=== PATIENT | male | born 1950 | race Caucasian/White ===

== ENCOUNTER 2019-09-10 07:43 | Outpatient (CLI) | payer MEDICARE, SELFPAY ==
[2019-09-10 08:19] LABS: Blood Urea Nitrogen 12 mg/dL (9-20); Calcium 9.8 mg/dL (8.4-10.2); Carbon Dioxide 30 mmol/L (22-30); Chloride 101 mmol/L (98-107); Cholesterol 114 mg/dL (0-200); Estimated Glomerular Filt Rate > 60; Glucose 124 mg/dL (75-110); HDL Direct 30 mg/dL; Potassium 4.2 mmol/L (3.4-5.0); Sodium 137 mmol/L (137-145); Triglycerides 46 mg/dL (<150)
[2019-09-10 08:21] LABS: Hemoglobin A1C 6.1 % (<5.7)
[2019-09-10 08:30] LABS: LDL Cholesterol Direct 71 mg/dL
== END 2019-09-10 07:44 | disposition home or self-care (01) ==
PROVIDERS: PCP Internal Medicine; Visit Provider Internal Medicine
DX: I10 Essential (primary) hypertension (principal); E78.2 Mixed hyperlipidemia; E11.9 Type 2 diabetes mellitus without complications
CPT/HCPCS: 36415; 80048; 80061; 83036

== ENCOUNTER 2019-09-17 11:18 | Outpatient (CLI) | payer MEDICARE, SELFPAY ==
--- NOTE | ~2019-09-17 | XR_ITS ---
XR lumbar spine 2-3V DATE: 09/17/2019 11:50 INDICATION: Low back pain TECHNIQUE: AP, lateral, coned lateral lumbosacral views COMPARISON: None FINDINGS: There is mild levoscoliosis of the lower thoracic and lumbar spine. There is diffuse idiopathic skeletal hyperostosis of the thoracic and lumbar spine. No fracture or bone destruction of the lumbar spine. The included lower thoracic and lumbar pedicles appear intact. The sacroiliac joints are intact. IMPRESSION: Scoliosis and diffuse idiopathic skeletal hyperostosis Reviewed, dictated and finalized at location A.
--- NOTE | ~2019-09-17 | XR_ITS ---
XR pelvis 1-2V DATE: 09/17/2019 11:50 INDICATION: Back pain, pelvic pain TECHNIQUE: AP view COMPARISON: None FINDINGS: No pelvic fracture or bone destruction. The pubic symphysis and sacroiliac joints are intac t. Hip joint spaces appear symmetric and relatively preserved. IMPRESSION: No significant abnormality Reviewed, dictated and finalized at location A. IMPRESSION: No significant abnormality
== END 2019-09-17 11:19 | disposition home or self-care (01) ==
PROVIDERS: PCP Internal Medicine; Visit Provider Internal Medicine
DX: M54.5 Low back pain (principal); M54.6 Pain in thoracic spine; M41.9 Scoliosis, unspecified
CPT/HCPCS: 72100; 72170

== ENCOUNTER 2019-12-17 07:25 | Outpatient (CLI) | payer MEDICARE, OTHER, SELFPAY ==
[2019-12-17 08:00] LABS: Hemoglobin A1C 5.7 % (<5.7)
[2019-12-17 08:01] LABS: Cholesterol 108 mg/dL (0-200); HDL Direct 27 mg/dL; Triglycerides 66 mg/dL (<150)
[2019-12-17 08:12] LABS: LDL Cholesterol Direct 68 mg/dL
[2019-12-17 08:32] LABS: Prostate Specific Antigen 1.1 ng/mL (< OR = 4.0)
[2019-12-17 08:44] LABS: Creatinine Urine 147.5 mg/dL
[2019-12-17 08:49] LABS: MALB Creatinine Ratio 13.4 mg/g (0-30); Microalbumin Urine Random 19.8 mg/L (0-16.7)
== END 2019-12-17 07:26 | disposition home or self-care (01) ==
LOC: ANHLAB 07:29
PROVIDERS: PCP Internal Medicine; Visit Provider Internal Medicine
DX: E11.9 Type 2 diabetes mellitus without complications (principal); E78.2 Mixed hyperlipidemia; Z12.5 Encounter for screening for malignant neoplasm of prostate
CPT/HCPCS: 36415; 80061; 82043; 83036; 84153; G0103

== ENCOUNTER 2020-05-03 08:04 | Outpatient (CLI) | payer MEDICARE, OTHER, SELFPAY ==
[2020-05-03 08:32] LABS: Basophils Absolute Auto 0.1 K/mm3 (0.0-0.1); Basophils Percent Auto 0.9 % (0.2-1.2); Eosinophils Percent Auto 0.5 % (0-4.4); Hematocrit 42.7 % (42.0-52.0); Hemoglobin 14.3 g/dL (14.0-18.0); Immature Granulocyte Absolute 0.02 K/mm3 (0.00-0.031); Immature Granulocyte Percent A 0.3 % (0-0.5); Lymphocytes Absolute Auto 2.82 K/mm3 (0.9-3.2); Lymphocytes Percent Auto 37.9 % (18.3-44.2); Mean Corpuscular HGB Conc 33.5 g/dl (32-36); Mean Corpuscular Volume 98.6 fl (80-100); Mean Platelet Volume 10.7 fl (7.4-10.4); Monocytes Absolute Auto 0.4 K/mm3 (0.1-0.6); Monocytes Percent Auto 5.4 % (2.6-8.5); Neutrophils Absolute Auto 4.1 K/mm3 (1.3-6.7); Platelet Count Result 233 k/mm3 (150-375); Red Blood Count 4.33 M/mm3 (4.6-6.20); Red Cell Distribution Width 18.2 % (11.5-14.5); White Blood Count 7.5 K/mm3 (4.5-10.0)
[2020-05-03 08:47] LABS: Alanine Aminotransferase 41 U/L (4-50); Albumin Level 3.9 g/dL (3.5-5.1); Alkaline Phosphatase 61 U/L (38-126); Anion Gap 8 mmol/L (8-16); Aspartate Amino Transferase 30 U/L (17-59); Bilirubin,Total 1.4 mg/dL (0.2-1.3); Blood Urea Nitrogen 13 mg/dL (9-20); Calcium 9.4 mg/dL (8.4-10.2); Carbon Dioxide 29 mmol/L (22-30); Chloride 102 mmol/L (98-107); Estimated Glomerular Filt Rate > 60; Glucose 130 mg/dL (75-110); Potassium 3.8 mmol/L (3.4-5.0); Sodium 139 mmol/L (137-145)
[2020-05-04 11:36] LABS: Cholesterol 120 mg/dL (0-200); HDL Direct 30 mg/dL; Triglycerides 82 mg/dL (<150)
[2020-05-04 11:47] LABS: LDL Cholesterol Direct 81 mg/dL
[2020-05-06 05:17] LABS: Homocysteine 9.8 umol/L (<11.4)
[2020-05-06 15:45] LABS: Vitamin D 1,25 (OH)2 Total 35 pg/mL (18-72); Vitamin D2 1,25 (OH)2 <8 pg/mL; Vitamin D3 1,25 (OH)2 35 pg/mL
== END 2020-05-03 08:05 | disposition home or self-care (01) ==
PROVIDERS: PCP Internal Medicine; Visit Provider Internal Medicine
DX: Z79.899 Other long term (current) drug therapy (principal); E55.9 Vitamin D deficiency, unspecified; R79.9 Abnormal finding of blood chemistry, unspecified; E11.9 Type 2 diabetes mellitus without complications; E78.2 Mixed hyperlipidemia
CPT/HCPCS: 36415; 80053; 80061; 82652; 83036; 83090; 85025

== ENCOUNTER 2020-07-05 17:03 | Outpatient (CLI) | payer MEDICARE, OTHER, SELFPAY | END 2020-07-05 17:04 | disposition home or self-care (01) | LOC: ANHCOVIDVC 17:03 | PROVIDERS: PCP Internal Medicine | DX: Z23 Encounter for immunization (principal) | CPT/HCPCS: 0001A; 91300 ==

== ENCOUNTER 2020-07-26 16:53 | Outpatient (CLI) | payer MEDICARE, OTHER, SELFPAY | END 2020-07-26 16:54 | disposition home or self-care (01) | LOC: ANHCOVIDVC 16:53 | PROVIDERS: PCP Internal Medicine | DX: Z23 Encounter for immunization (principal) | CPT/HCPCS: 0002A; 91300 ==

== ENCOUNTER 2020-09-21 07:48 | Outpatient (CLI) | payer MEDICARE, OTHER, SELFPAY ==
[2020-09-21 09:16] LABS: Hemoglobin A1C 5.9 % (<5.7)
[2020-09-21 09:21] LABS: Alanine Aminotransferase 31 U/L (4-50); Albumin Level 3.8 g/dL (3.5-5.1); Alkaline Phosphatase 55 U/L (38-126); Anion Gap 4 mmol/L (8-16); Aspartate Amino Transferase 26 U/L (17-59); Blood Urea Nitrogen 15 mg/dL (9-20); Calcium 9.7 mg/dL (8.4-10.2); Carbon Dioxide 30 mmol/L (22-30); Chloride 102 mmol/L (98-107); Cholesterol 113 mg/dL (0-200); Estimated Glomerular Filt Rate > 60; Glucose 125 mg/dL (75-110); HDL Direct 33 mg/dL; Potassium 4.3 mmol/L (3.4-5.0); Sodium 136 mmol/L (137-145); Triglycerides 45 mg/dL (<150)
[2020-09-21 09:31] LABS: LDL Cholesterol Direct 73 mg/dL
[2020-09-21 09:36] LABS: MALB Creatinine Ratio 30.9 mg/g (0-30); Microalbumin Urine Random 31.8 mg/L (0-16.7)
[2020-09-21 09:51] LABS: Prostate Specific Antigen 1.1 ng/mL (< OR = 4.0)
== END 2020-09-21 07:49 | disposition home or self-care (01) ==
PROVIDERS: PCP Internal Medicine; Visit Provider Internal Medicine
DX: Z12.5 Encounter for screening for malignant neoplasm of prostate (principal); E11.9 Type 2 diabetes mellitus without complications; I10 Essential (primary) hypertension; E78.2 Mixed hyperlipidemia; Z51.81 Encounter for therapeutic drug level monitoring; Z79.899 Other long term (current) drug therapy
CPT/HCPCS: 36415; 80053; 80061; 82043; 83036; 84153; 84443; G0103

== ENCOUNTER → 2020-10-18 13:44 | Outpatient (CLI) | payer MEDICARE, OTHER, SELFPAY ==
--- NOTE | ~2020-10-18 | CT_ITS ---
EXAMINATION: CT abdomen wo con DATE: 10/18/2020 14:03 INDICATION: Localized mass/swelling/lump of the trunk TECHNIQUE: Computed tomography (CT) of the abdomen was performed without intravenous contrast. Automa lauren exposure control and iterative reconstruction technique were employed. Exam dose: 798.69 mGy-cm total exam DLP. COMPARISON: None. FINDINGS: The lung bases are clear of infiltrate or consolidation. Heart size is within normal range. No pericardial or pleural effusion. Possible stone in the dependent aspect of the gallbladder; ultrasound would be more definitive for co nfirmation or exclusion of cholelithiasis. No pericholecystic fluid or fat stranding. No bile duct or pancreatic duct dilatation. No pancreatic mass lesion or calcification. Calcified splenic granulomas . No splenomegaly. Normal morphology of the adrenal glands. No urinary tract calculus or hydroureteronephrosis. No renal space occupying mass lesion is evident o n this limited noncontrast examination. Normal caliber of the abdominal aorta. No intraperitoneal or retroperitoneal mass lesion or adenopath y or ascites. The sigmoid colon is redundant with prominent gaseous distention of the umbilical and supraumbilical level.. There is a prominent amount of fecal material in the colon. No bowel obstruction or intraperi toneal free air is detected. Diverticulosis of the colon; no CT evidence of diverticulitis. Normal appendix. Diffuse idiopathic skeletal hyperostosis of the thoracic and lumbar spine. No suspicious osteolytic o r osteoblastic lesions are noted. Mild likely chronic anterior wedging of L2. Prominent degenerative change of the lumbar and lumbosacral apophyseal joints. No spondylolisthesis. IMPRESSION: Gaseous distention of redundant sigmoid colon, without evidence of bowel obstruction or bowel wall thickening, pneumatosis or intraperitoneal free air Normal appendix Diverticulosis of the colon; no CT evidence of diverticulitis Cannot exclude cholelithiasis; consider gallbladder ultrasound for more definitive confirmation or ex clusion of gallstones Reviewed, dictated and finalized at Location A. Reviewed, dictated and finalized at location A. IMPRESSION: Gaseous distention of redundant sigmoid colon, without evidence of bowel obstruction or bowel wall thickening, pneumatosis or intraperitoneal fidel e air Normal appendix Diverticulosis of the colon; no CT evidence of diverticulitis Cannot exclude cholelithiasis; consider gallbladder ultrasound for more definit melba confirmation or exclusion of gallstones
== END ==
PROVIDERS: PCP Internal Medicine; Visit Provider Surgery
DX: R22.2 Localized swelling, mass and lump, trunk (principal); K57.30 Diverticulosis of large intestine without perforation or abscess without bleeding
CPT/HCPCS: 74150

== ENCOUNTER 2021-01-17 08:26 | Outpatient (CLI) | payer MEDICARE, OTHER, SELFPAY ==
--- NOTE | ~2021-01-17 | NM_ITS ---
EXAMINATION: NM reji stress w perfusion DATE: 01/17/2021 10:49 INDICATION: Type 2 diabetes TECHNIQUE: Rest images were obtained following intravenous administration of 11.6 mCi Tc99m tetrofosm in (Myoview). The patient was infused intravenously with Lexiscan (Regadenoson). Then, 31.5 mCi Tc99m tetrofosmin (Myoview) was administered intravenously, and stress images were obtained. Data was preston nstructed into short axis and horizontal and vertical long axis SPECT images. Gated SPECT images were also obtained. COMPARISON: None. FINDINGS: There is no definite reversible or fixed perfusion abnormality to suggest ischemia or infar ction. There is normal left ventricular chamber size, wall motion and ejection fraction. Left ventr icular ejection fraction measures 66%. IMPRESSION: 1. Normal myocardial perfusion at rest and during stress. 2. Left ventricular ejection fraction measuring 66%. Reviewed, dictated and finalized at location A.
--- NOTE | 2021-01-17 08:39 | EST_ITS ---
Patient Info Name: Khadijah Mckeon Age: 71 years : 1950 Gender: Male Ht: 69 in Wt: 257 lbs BSA: 2.43 m2 Exam Date: 01/17/2021 9:37 AM Exam Location: [facility] Stress Patient Status: Outpatient Admit Date: 01/17/2021 Staff Ordering Physician: Patrick Ken MD Attending Provider: Patrick eKn MD Exercise Technologist: Jaleesa Milligan RDCS Exercise Physician: Alfred Truong DO Exam Type: CA stress reji w NM Study Info Indications E11.9 - TYPE 2 DIABETES MELLITUS WITHOUT COMPLICATIONS A regadenoson stress test was performed. Summary 1. 1. Negative lexiscan stress test for ischemic ST change by ECG criteria. 2. 2. Stable hemodynamics throughout the test. 3. 3. Nuclear scan to follow and will be reported separately. Please correlate with it. 4. 4. Patient informed of the above results. Protocol: Lexiscan Stress ECG Details Stage: REST Duration (min): 4 min : 5 sec HR (bpm): 80 SBP (mmHg): 122 DBP (mmHg): 64 Stage: REST Duration (min): 9 min : 46 sec HR (bpm): 82 SBP (mmHg): 122 DBP (mmHg): 64 Stage: STAGE 1 Duration (min): 0 min : 59 sec HR (bpm): 104 SBP (mmHg): 117 DBP (mmHg): 71 Stage: RECOVERY Duration (min): 1 min : 0 sec HR (bpm): 111 SBP (mmHg): 125 DBP (mmHg): 65 Stage: RECOVERY Duration (min): 2 min : 0 sec HR (bpm): 106 SBP (mmHg): 125 DBP (mmHg): 65 Stage: RECOVERY Duration (min): 3 min : 0 sec HR (bpm): 106 SBP (mmHg): 116 DBP (mmHg): 62 Stage: RECOVERY Duration (min): 4 min : 0 sec HR (bpm): 104 SBP (mmHg): 116 DBP (mmHg): 62 Stage: RECOVERY Duration (min): 4 min : 44 sec HR (bpm): 103 SBP (mmHg): 121 DBP (mmHg): 61 Rest HR: 82 bpm Peak HR: 112 bpm Rest Sys BP: 122 mmHg Peak Sys BP: 125 mmHg Max Pred HR: 147 bpm % Max Pred HR: 76 % Target HR: 125 bpm Max RPP: 14,000 bpm*mmHg Termination Reason: Completed protocol Cardiac Symptoms: Chest pressure Total Time: 1 min : 0 sec Rest Fritz BP: 64 mmHg Peak Fritz BP: 65 mmHg Total Dose: 0.4 mg Resting ECG Sinus rhythm. Stress ECG No ST changes. Arrhythmias None. Report Signatures
== END 2021-01-17 08:27 | disposition home or self-care (01) ==
LOC: ANHCARD 08:28
PROVIDERS: PCP Internal Medicine; Visit Provider Internal Medicine
DX: Z01.810 Encounter for preprocedural cardiovascular examination (principal); E11.9 Type 2 diabetes mellitus without complications; E78.2 Mixed hyperlipidemia; I10 Essential (primary) hypertension
CPT/HCPCS: 78452; 80048; 80307; 81003; 82040; 83036; 85025; 85610; 85730; 86850; 86900; 86901; 87081; 93017; A9502; J2785

== ENCOUNTER 2021-01-17 13:43 | Outpatient (CLI) | payer MEDICARE, OTHER, SELFPAY ==
[2021-01-17 14:53] LABS: Albumin Level 3.8 g/dL (3.5-5.1); Anion Gap 7 mmol/L (8-16); Blood Urea Nitrogen 13 mg/dL (9-20); Calcium 8.9 mg/dL (8.4-10.2); Carbon Dioxide 29 mmol/L (22-30); Chloride 101 mmol/L (98-107); Estimated Glomerular Filt Rate > 60; Glucose 114 mg/dL (65-110); Potassium 4.1 mmol/L (3.4-5.0); Sodium 137 mmol/L (137-145)
[2021-01-17 14:55] LABS: Hemoglobin A1C 5.5 % (<5.7)
[2021-01-17 14:57] LABS: Basophils Absolute Auto 0.1 K/mm3 (0.0-0.1); Basophils Percent Auto 1.1 % (0.2-1.2); Eosinophils Percent Auto 0.2 % (0-4.4); Hematocrit 40.6 % (42.0-52.0); Hemoglobin 13.3 g/dL (14.0-18.0); Immature Granulocyte Absolute 0.01 K/mm3 (0.00-0.031); Immature Granulocyte Percent A 0.2 % (0-0.5); Lymphocytes Absolute Auto 1.78 K/mm3 (0.9-3.2); Lymphocytes Percent Auto 27.2 % (18.3-44.2); Mean Corpuscular HGB Conc 32.8 g/dl (32-36); Mean Corpuscular Hemoglobin 32.7 pg (26-34); Mean Corpuscular Volume 99.8 fl (80-100); Mean Platelet Volume 10.2 fl (7.4-10.4); Monocytes Absolute Auto 0.4 K/mm3 (0.1-0.6); Monocytes Percent Auto 6.4 % (2.6-8.5); Neutrophils Absolute Auto 4.3 K/mm3 (1.3-6.7); Neutrophils Percent Auto 64.9 % (45.5-73.1); Platelet Count Result 203 k/mm3 (150-375); Red Blood Count 4.07 M/mm3 (4.6-6.20); Red Cell Distribution Width 19.7 % (11.5-14.5); White Blood Count 6.5 K/mm3 (4.5-10.0)
[2021-01-17 14:57] LABS: INR 0.9; Prothrombin Time 12.1 Seconds (11.1-14.7)
[2021-01-17 14:58] LABS: Partial Thromboplastin Time 23.9 SECONDS (22.3-36.8)
[2021-01-17 15:14] LABS: Add Urine Microscopic? NO; Appearance Urine Clear (Clear); Bilirubin Urine Negative (Negative); Blood Urine Negative (Negative); Color Urine Yellow (Yellow); Glucose Urine UA Negative (Negative); Ketones Urine Negative (Negative); Leukocyte Esterase Ur Negative LEU/UL (Negative); Nitrate Urine Negative (Negative); Protein Urine Negative (Negative); Specific Grav Ur 1.016 (1.001-1.035); Urobilinogen Urine Negative mg/dL (<2.0)
[2021-01-17 15:26] LABS: Urine Cotinine NEGATIVE
== END 2021-01-17 13:44 | disposition home or self-care (01) ==
LOC: ANHSURGERY 13:47
PROVIDERS: PCP Internal Medicine; Visit Provider Orthopaedic Surgery
DX: Z01.812 Encounter for preprocedural laboratory examination (principal); M17.12 Unilateral primary osteoarthritis, left knee; Z51.81 Encounter for therapeutic drug level monitoring; Z79.899 Other long term (current) drug therapy
CPT/HCPCS: 80048; 80307; 81003; 82040; 83036; 85025; 85610; 85730; 86850; 86900; 86901; 87081

== ENCOUNTER 2021-01-26 01:12 | Day surgery (SDC) | payer MEDICARE, OTHER, SELFPAY ==
[2021-01-17 13:52] VITALS: BMI 39.4
[2021-01-17 14:05] VITALS: BP 136/74; PULSE 82; RESP 20; TEMP 36.9; O2SAT 97
[2021-01-26] VITALS (15 sets, daily range): BP systolic 102–130; BP diastolic 53–90; PULSE 72–96; RESP 15–18; TEMP 36.3–36.8; O2SAT 94–100
--- NOTE | ~2021-01-26 | XR_ITS ---
EXAMINATION: XR knee LT 2V DATE: 01/26/2021 10:13 INDICATION: Left knee arthroplasty. Postop. TECHNIQUE: 2 views of left knee were obtained. COMPARISON: Left knee radiographs 12/20/2020 FINDINGS: There is a total left knee arthroplasty without patellar resurfacing in near-anatomic align ment. No fracture. There is gas in the knee joint and soft tissues, consistent with recent surgery. A nterior skin emiliano are noted. IMPRESSION: 1. Total left knee arthroplasty in near-anatomic alignment. Reviewed, dictated and finalized at location A.
[2021-01-26] MEDS: ACETAMINOPHEN 500 MG TABLET 1000 MG PO (06:44)
[2021-01-26] MEDS: LACTATED RINGERS 1,000 ML 30 ML IV CONT ×2 (06:45→10:02)
[2021-01-26] MEDS: TRANEXAMIC ACID 1,000MG/ISO100 1,000 MG/100 ML BAG 200 MG IVPB (06:46)
[2021-01-26 06:54] LABS: Glucose Point of Care 123 mg/dl (65-105)
--- NOTE | 2021-01-26 07:10 | WPDANESEPPF ---
Anes - Initial Pre Proc Eval Procedure: Operation Date: 01/26/21 07:30 Proposed Procedures p Left Total Knee Arthroplasty - Scotty Chiang MD Date/Time: 01/26/21 07:10 Surgeon: Scotty Chiang MD Pre Op Diagnosis: left knee DJD Patient Data Age: 71 Gender: M Height: 1.75 m Weight: 120.5 kg Last Vital Signs Temp 36.9 C 01/17/21 14:05 Pulse 82 01/17/21 14:05 Resp 20 01/17/21 14:05 BP 136/74 01/17/21 14:05 Pulse Ox 97 01/17/21 14:05 Allergies Allergy/AdvReac Type Severity Reaction Status Date / Time Penicillins Allergy Unknown Rash Verified 01/26/21 06:35 Home Medications Medication Instructions Recorded Confirmed Type multivitamin 1 tablet PO DAILY 09/17/19 01/26/21 History lisinopril 20 1 tablet PO DAILY #90 tablet 09/21/20 01/26/21 Rx mg-hydrochlorothiazide 25 mg tablet amlodipine 10 mg PO QAM 01/17/21 01/26/21 History atorvastatin 20 mg QAM 01/17/21 01/26/21 History omega-3 fatty acids [Fish Oil 2,000 mg PO BID 01/17/21 01/26/21 History Concentrate] metformin 500 mg tablet 500 mg PO BID #180 tablet 01/25/21 01/26/21 Rx Laboratory Tests 01/26/21 06:49 POC Capillary Glucose 123 mg/dl H mg/dl (65-105) Patient hx anesthesia problems: none Family hx anesthesia problems: none PMFSH Past Medical History Medical History Abnormal finding of blood chemistry Arthritis Back pain Benign essential hypertension BMI 38.0-38.9,adult BMI 39.0-39.9,adult Chronic back pain Colon cancer screening COPD (chronic obstructive pulmonary disease) DJD (degenerative joint disease) DM2 (diabetes mellitus, type 2) Encounter for Medicare annual wellness exam Encounter for pre-operative cardiovascular clearance Encounter for routine adult health examination with abnormal findings Encounter for routine adult health examination without abnormal findings Encounter for special screening examination for neoplasm of prostate Hearing loss High blood pressure History of urinary frequency 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 Senile cataract of right eye Umbilical hernia Ventral hernia Vitamin D deficiency Surgical History Surgical History History of knee surgery Family History Family History Father Hypertension Cerebrovascular accident Family history of cardiovascular disease Mother Hypertension Family history of cardiovascular disease Family history of arthritis Sibling Cerebrovascular accident Social History Social History Smoking status: Former smoker Tobacco type: cigarettes Second hand tobacco smoke exposure: No Additional smoking assessment comments: STATES WAS SOCIAL SMOKER, QUITE 50+ YEARS AGO Alcohol intake: never Alcohol use details: STATES MAYBE 2-3 DRINKS/MONTH Substance use: never Substance use type: does not use Living arrangements: with family Spiritual care concerns: No Anes - Eval Final PreProcedure Day of Procedure 01/26/21 07:10 Patient weight: obese Heart: regular rate and rhythm Lungs: clear to auscultation Airway: Mallampati scale class II Neurological: alert and oriented Last oral intake: >/= 8 hours ASA classification: III Emergent: no Anesthetic plan: proceed Anesthesia type and monitoring: general LMA and standard monitoring Informed Consent: The patient's anesthetic plan and its attendant risks and benefits were discussed with the patient/family/POA. Questions were solicited and answers provided to the satisfaction of the patient/family/POA.
--- NOTE | 2021-01-26 07:18 | WPDANESPNB ---
Anes - Peripheral Nerve Block Date/Time: 01/26/21 07:18 I have discussed with the patient/family/POA the placement of a peripheral nerve block for post-operative pain management, including associated risks, benefits, complications, and side effects. Alternative methods of post-operative analgesia were detailed. Questions were solicited and answers provided to the satisfaction of the patient/family/POA. Time-Out: A pre-procedural Time-Out was completed immediately before starting the procedure and confirmed: Patient Identification, Site, Procedure, Patient Position and the Availability of Requisite Equipment. Clinical Indications: Acute post-operative pain management requested by the operative surgeon. Nerve Block Insertion Note Anes-nerve block: adductor canal left Patient position: supine Skin prep: chlorhexidine Needle: 22 gauge, stimulating, insulated echogenic needle. Needle length: 80 mm Technique: ultrasound Technique comment: in plane Injectate: bupivacaine 0.5% with epi 5 mcg/ml (30cc) Observations: tolerated well Complications: none Procedure start time:: 725 Procedure end time:: 730
--- NOTE | 2021-01-26 07:27 | WPDHPUPDATE1 ---
History and Physical Update Update Date/Time: 01/26/21 07:27 History and Physical has been reviewed, including an updated exam of the patient. There are NO changes in the patient's condition. Risks, benefits, and alternatives have been discussed and questions answered. Patient agrees to proceed with procedure.
[2021-01-26] MEDS: ceFAZolin 3 GM/D5W 100 ML 100 ML IVPB (07:38)
[2021-01-26] MEDS: TRANEXAMIC ACID 1,000 MG/10 ML AMPUL 1000 MG IV PUSH (09:33)
[2021-01-26 10:09] LABS: Glucose Point of Care 172 mg/dl (65-105)
--- NOTE | 2021-01-26 10:38 | W.PM.PROC2 ---
Procedure Note - Detailed Date of Procedure 01/26/21 Pre-op Diagnosis left knee DJD Post-op Diagnosis same Procedure Performed L TKA Surgeon Scotty Chiang MD Anesthesia general Description of Procedure THE LEFT KNEE WAS PREPPED AND DRAPED IN THE STERILE FASHION. THERE WAS A 20 DEGREE FLEXION CONTRACTURE. A MIDLINE SKIN INCISION WAS MADE. A MEDIAL PARAPATELLAR ARTHROTOMY WAS MADE. THE PATELLA WAS EVERTED. THERE WAS TRICOMPARTMENT DJD. THERE WAS MINIMAL PATELLA DJD. AN INTRAMEDULLARY DAWIT WAS PLACED IN THE FEMUR. A DISTAL FEMORAL CUT WAS MADE IN 5 DEGREES OF VALGUS REMOVING APPROXIMATELY 11 MM OF BONE FROM THE DISTAL FEMUR. THE FEMUR WAS SIZED TO 72.5. A 72.5 FEMORAL CUTTING BLOCK WAS PLACED IN 3 DEGREES OF EXTERNAL ROTATION AND IN ALIGNMENT WITH ALIS'S LINE AND THE TRANSEPICONDYLAR AXIS. ANTERIOR POSTERIOR AND CHAMFER CUTS WERE MADE. THE CUTS WERE EXCELLENT. NEXT AN INTRAMEDULLARY CUTTING GUIDE WAS PLACED IN THE TIBIA. A TRANS TIBIAL CUT WAS MADE ALONG THE LONG AXIS OF THE TIBIA. APPROXIMATELY 10 MM OF BONE WAS REMOVED FROM THE HIGH SIDE OF THE TIBIA. THE TIBIA WAS THEN PLANED TO A SMOOTH SURFACE. POSTERIOR FEMORAL OSTEOPHYTES WERE REMOVED FROM THE FEMORAL CONDYLES. A 79 TIBIAL TRIAL WAS PLACED IN ALIGNMENT WITH THE 1/3 MEDIAL ASPECT OF THE TIBIAL TUBERCLE. THEN A 72.5 FEMORAL TRIAL COMPONENT WAS PLACED. BOTH HAD EXCELLENT FITS. EVENTUALLY A 10 MM CR POLYETHYLENE TRIAL COMPONENT WAS PLACED. THE KNEE WAS TAKEN THROUGH A RANGE OF MOTION. THE KNEE CAME OUT TO FULL EXTENSION. THERE WAS NO ABNORMAL TILT TO THE PATELLA. THERE WAS GOOD A/P AND VARUS/VALGUS STABILITY. THERE WAS NO EXCESSIVE ROLL BACK WITH FLEXION. THE TRIAL COMPONENTS WERE REMOVED. THEN A 72.5 FEMORAL COMPONENT AND 79 TIBIAL COMPONENT WITH A 10 CR POLYETHYLENE COMPONENT WERE CEMENTED INTO PLACE. ONCE THE CEMENT WAS HARD THE KNEE WAS TAKEN THROUGH A ROM AGAIN AND FOUND TO BE STABLE WITH NO PATELLA TILT NO EXCESSIVE ROLL BACK WITH FLEXION AND GOOD STABILITY WITH COMPLETE AND FULL EXTENSION. THE KNEE WAS IRRIGATED WITH STERILE BETADINE AND WATER FOR ABOUT 3 MINUTES. THE BLEEDERS WERE CAUTERIZED. THE ARTHROTOMY WAS REPAIRED WITH NUMBER 1 VICRYL. THE SUB CUTANEOUS LAYER WITH 2-0 VICRYL AND THE SKIN WITH ZAKIA. THE WOUND WAS WASHED AND A STERILE DRESSING WAS APPLIED. PATIENT WAS EXTUBATED. Estimated Blood Loss -150.0 Pathology none sent Complications No immediate complications Condition stable Disposition PACU
[2021-01-26] MEDS: oxyCODONE HCL (*CRX) 5 MG TAB IR PO (11:13)
--- NOTE | 2021-01-26 13:46 | PCPTNOTE ---
On 01/26/21, the student, Shabbir KOTHARI, provided care and completed [facility] documentation on this patient. I have reviewed the student's documentation and agree with the findings.
== END 2021-01-26 13:34 | disposition home or self-care (01) ==
PROVIDERS: PCP Internal Medicine; Visit Provider Orthopaedic Surgery
PROC: (CPT 27447; principal; 2021-01-26 07:30)
DX: M17.12 Unilateral primary osteoarthritis, left knee (principal); G89.18 Other acute postprocedural pain; I10 Essential (primary) hypertension; J44.9 Chronic obstructive pulmonary disease, unspecified; E11.9 Type 2 diabetes mellitus without complications; E55.9 Vitamin D deficiency, unspecified; Z87.891 Personal history of nicotine dependence; E66.9 Obesity, unspecified; Z68.39 Body mass index [BMI] 39.0-39.9, adult; Z79.84 Long term (current) use of oral hypoglycemic drugs
CPT/HCPCS: 27447; 64447; 73560; 82948; 97161; A9270; C1713; C1776; J0171; J0461; J0690; J1100; J1170; J2250; J2270; J2405; J2704; J2795; J3010; J7120

== ENCOUNTER 2021-02-10 07:00 | Outpatient (CLI) | payer MEDICARE, OTHER, SELFPAY ==
[2021-02-10 07:50] LABS: Basophils Absolute Auto 0.1 K/mm3 (0.0-0.1); Basophils Percent Auto 0.9 % (0.2-1.2); Eosinophils Percent Auto 0.3 % (0-4.4); Hematocrit 37.4 % (42.0-52.0); Hemoglobin 11.8 g/dL (14.0-18.0); Immature Granulocyte Absolute 0.05 K/mm3 (0.00-0.031); Immature Granulocyte Percent A 0.4 % (0-0.5); Lymphocytes Percent Auto 23.8 % (18.3-44.2); Mean Corpuscular HGB Conc 31.6 g/dl (32-36); Mean Corpuscular Hemoglobin 32.3 pg (26-34); Mean Corpuscular Volume 102.5 fl (80-100); Mean Platelet Volume 9.7 fl (7.4-10.4); Monocytes Absolute Auto 0.6 K/mm3 (0.1-0.6); Monocytes Percent Auto 4.9 % (2.6-8.5); Neutrophils Absolute Auto 8.5 K/mm3 (1.3-6.7); Neutrophils Percent Auto 69.7 % (45.5-73.1); Platelet Count Result 567 k/mm3 (150-375); Red Blood Count 3.65 M/mm3 (4.6-6.20); Red Cell Distribution Width 19.9 % (11.5-14.5); White Blood Count 12.2 K/mm3 (4.5-10.0)
[2021-02-10 07:58] LABS: Alanine Aminotransferase 19 U/L (4-50); Albumin Level 3.8 g/dL (3.5-5.1); Alkaline Phosphatase 70 U/L (38-126); Anion Gap 6 mmol/L (8-16); Aspartate Amino Transferase 21 U/L (17-59); Bilirubin,Total 0.7 mg/dL (0.2-1.3); Blood Urea Nitrogen 18 mg/dL (9-20); Calcium 9.5 mg/dL (8.4-10.2); Carbon Dioxide 31 mmol/L (22-30); Chloride 98 mmol/L (98-107); Cholesterol 119 mg/dL (0-200); Estimated Glomerular Filt Rate > 60; Glucose 155 mg/dL (65-110); HDL Direct 28 mg/dL; Potassium 4.5 mmol/L (3.4-5.0); Sodium 135 mmol/L (137-145); Triglycerides 66 mg/dL (<150)
[2021-02-10 08:09] LABS: LDL Cholesterol Direct 77 mg/dL
[2021-02-10 08:18] LABS: Free T4 Free Thyroxine 1.61 ng/mL (0.78-2.19)
[2021-02-10 09:24] LABS: Hemoglobin A1C 5.4 % (<5.7)
== END 2021-02-10 07:01 | disposition home or self-care (01) ==
LOC: ANHLAB 07:05
PROVIDERS: PCP Internal Medicine; Visit Provider Internal Medicine
DX: E78.2 Mixed hyperlipidemia (principal); Z79.899 Other long term (current) drug therapy; I10 Essential (primary) hypertension; E11.9 Type 2 diabetes mellitus without complications
CPT/HCPCS: 36415; 80053; 80061; 83036; 84439; 84443; 85025

== ENCOUNTER 2021-06-27 07:50 | Outpatient (CLI) | payer MEDICARE, OTHER, SELFPAY ==
[2021-06-27 08:41] LABS: Basophils Absolute Auto 0.1 K/mm3 (0.0-0.1); Basophils Percent Auto 1.4 % (0.2-1.2); Eosinophils Percent Auto 0.5 % (0-4.4); Hematocrit 41.7 % (42.0-52.0); Hemoglobin 13.3 g/dL (14.0-18.0); Immature Granulocyte Absolute 0.03 K/mm3 (0.00-0.031); Immature Granulocyte Percent A 0.3 % (0-0.5); Lymphocytes Percent Auto 30.6 % (18.3-44.2); Mean Corpuscular HGB Conc 31.9 g/dl (32-36); Mean Corpuscular Hemoglobin 31.9 pg (26-34); Mean Platelet Volume 10.6 fl (7.4-10.4); Monocytes Absolute Auto 0.4 K/mm3 (0.1-0.6); Monocytes Percent Auto 4.8 % (2.6-8.5); Neutrophils Absolute Auto 5.5 K/mm3 (1.3-6.7); Neutrophils Percent Auto 62.4 % (45.5-73.1); Platelet Count Result 207 k/mm3 (150-375); Red Blood Count 4.17 M/mm3 (4.6-6.20); Red Cell Distribution Width 19.1 % (11.5-14.5); White Blood Count 8.8 K/mm3 (4.5-10.0)
[2021-06-27 09:07] LABS: Alanine Aminotransferase 14 U/L (4-50); Albumin Level 3.9 g/dL (3.5-5.1); Alkaline Phosphatase 63 U/L (38-126); Anion Gap 4 mmol/L (8-16); Aspartate Amino Transferase 20 U/L (17-59); Bilirubin,Total 0.9 mg/dL (0.2-1.3); Blood Urea Nitrogen 16 mg/dL (9-20); Calcium 9.1 mg/dL (8.4-10.2); Carbon Dioxide 32 mmol/L (22-30); Chloride 103 mmol/L (98-107); Cholesterol 92 mg/dL (0-200); Estimated Glomerular Filt Rate > 60; Glucose 112 mg/dL (65-110); HDL Direct 28 mg/dL; Potassium 4.1 mmol/L (3.4-5.0); Sodium 139 mmol/L (137-145); Triglycerides 49 mg/dL (<150)
[2021-06-27 09:18] LABS: LDL Cholesterol Direct 56 mg/dL
[2021-06-27 09:33] LABS: Hemoglobin A1C 5.8 % (<5.7)
[2021-06-27 09:54] LABS: Free T4 Free Thyroxine 1.08 ng/mL (0.78-2.19); Vitamin D 25 Hydroxy 30.6 ng/mL
[2021-06-29 21:36] LABS: Apolipoprotein B 49 mg/dL (<90)
== END 2021-06-27 07:51 | disposition home or self-care (01) ==
PROVIDERS: PCP Internal Medicine; Visit Provider Internal Medicine
DX: E78.2 Mixed hyperlipidemia (principal); E55.9 Vitamin D deficiency, unspecified; Z79.899 Other long term (current) drug therapy; I10 Essential (primary) hypertension; E11.9 Type 2 diabetes mellitus without complications
CPT/HCPCS: 36415; 80053; 80061; 82172; 82306; 83036; 84439; 84443; 85025

== ENCOUNTER 2021-11-10 08:06 | Outpatient (CLI) | payer MEDICARE, OTHER, SELFPAY ==
[2021-11-10 08:34] LABS: Hemoglobin A1C 5.7 % (<5.7)
[2021-11-10 08:38] LABS: Anion Gap 6 mmol/L (8-16); Blood Urea Nitrogen 21 mg/dL (9-20); Calcium 8.9 mg/dL (8.4-10.2); Carbon Dioxide 29 mmol/L (22-30); Chloride 103 mmol/L (98-107); Cholesterol 97 mg/dL (0-200); Estimated Glomerular Filt Rate > 60; Glucose 104 mg/dL (65-110); HDL Direct 27 mg/dL; Potassium 4.2 mmol/L (3.4-5.0); Sodium 138 mmol/L (137-145); Triglycerides 51 mg/dL (<150)
[2021-11-10 08:48] LABS: LDL Cholesterol Direct 53 mg/dL
[2021-11-10 08:54] LABS: Vitamin D 25 Hydroxy 55.1 ng/mL
== END 2021-11-10 08:07 | disposition home or self-care (01) ==
LOC: ANHLAB 08:08
PROVIDERS: PCP Internal Medicine; Visit Provider Internal Medicine
DX: E11.9 Type 2 diabetes mellitus without complications (principal); E78.2 Mixed hyperlipidemia; E55.9 Vitamin D deficiency, unspecified; I10 Essential (primary) hypertension
CPT/HCPCS: 36415; 80048; 80061; 82306; 83036

== ENCOUNTER 2022-04-04 07:39 | Outpatient (CLI) | payer MEDICARE, OTHER, SELFPAY ==
[2022-04-04 08:00] LABS: Basophils Absolute Auto 0.1 K/mm3 (0.0-0.1); Basophils Percent Auto 1.7 % (0.2-1.2); Eosinophils Percent Auto 0.5 % (0-4.4); Hematocrit 39.7 % (42.0-52.0); Immature Granulocyte Absolute 0.01 K/mm3 (0.00-0.031); Immature Granulocyte Percent A 0.2 % (0-0.5); Lymphocytes Absolute Auto 2.18 K/mm3 (0.9-3.2); Lymphocytes Percent Auto 37.6 % (18.3-44.2); Mean Corpuscular HGB Conc 32.7 g/dl (32-36); Mean Corpuscular Hemoglobin 33.2 pg (26-34); Mean Corpuscular Volume 101.3 fl (80-100); Mean Platelet Volume 10.1 fl (7.4-10.4); Monocytes Absolute Auto 0.3 K/mm3 (0.1-0.6); Monocytes Percent Auto 5.3 % (2.6-8.5); Neutrophils Absolute Auto 3.2 K/mm3 (1.3-6.7); Neutrophils Percent Auto 54.7 % (45.5-73.1); Platelet Count Result 148 k/mm3 (150-375); Red Blood Count 3.92 M/mm3 (4.6-6.20); Red Cell Distribution Width 19.9 % (11.5-14.5); White Blood Count 5.8 K/mm3 (4.5-10.0)
[2022-04-04 08:11] LABS: Appearance Urine Clear (Clear); Bilirubin Urine Negative (Negative); Blood Urine Negative (Negative); Color Urine Yellow (Yellow); Glucose Urine UA Negative (Negative); Ketones Urine Negative (Negative); Leukocyte Esterase Ur Negative LEU/UL (Negative); Nitrate Urine Negative (Negative); Protein Urine Negative (Negative); Specific Grav Ur 1.015 (1.001-1.035)
[2022-04-04 08:20] LABS: Hemoglobin A1C 5.8 % (<5.7)
[2022-04-04 09:09] LABS: Add Urine Microscopic? NO
[2022-04-04 09:18] LABS: Alanine Aminotransferase 22 U/L (6-50); Albumin Level 4.3 g/dL (3.5-5.1); Alkaline Phosphatase 71 U/L (38-126); Anion Gap 9 mmol/L (8-16); Aspartate Amino Transferase 21 U/L (17-59); Bilirubin,Total 1.1 mg/dL (0.2-1.3); Blood Urea Nitrogen 11 mg/dL (9-20); Calcium 8.9 mg/dL (8.4-10.2); Carbon Dioxide 29 mmol/L (22-30); Chloride 102 mmol/L (98-107); Cholesterol 106 mg/dL (0-200); Estimated Glomerular Filt Rate > 60; Glucose 105 mg/dL (65-110); HDL Direct 30 mg/dL; Sodium 140 mmol/L (137-145); Triglycerides 50 mg/dL (<150)
[2022-04-04 09:29] LABS: LDL Cholesterol Direct 60 mg/dL
== END 2022-04-04 07:40 | disposition home or self-care (01) ==
LOC: ANHLAB 07:41
PROVIDERS: PCP Internal Medicine; Visit Provider Internal Medicine
DX: I10 Essential (primary) hypertension (principal); E78.2 Mixed hyperlipidemia; E11.9 Type 2 diabetes mellitus without complications; Z79.899 Other long term (current) drug therapy
CPT/HCPCS: 36415; 80053; 80061; 81003; 83036; 85025

== ENCOUNTER 2022-08-30 07:39 | Outpatient (CLI) | payer MEDICARE, OTHER, SELFPAY ==
[2022-08-30 08:06] LABS: Basophils Absolute Auto 0.1 K/mm3 (0.0-0.1); Basophils Percent Auto 1.2 % (0.2-1.2); Eosinophils Percent Auto 0.5 % (0-4.4); Hematocrit 41.5 % (42.0-52.0); Hemoglobin 13.3 g/dL (14.0-18.0); Immature Granulocyte Absolute 0.01 K/mm3 (0.00-0.031); Immature Granulocyte Percent A 0.2 % (0-0.5); Lymphocytes Percent Auto 32.5 % (18.3-44.2); Mean Corpuscular Hemoglobin 32.7 pg (26-34); Mean Platelet Volume 9.9 fl (7.4-10.4); Monocytes Absolute Auto 0.4 K/mm3 (0.1-0.6); Monocytes Percent Auto 6.3 % (2.6-8.5); Neutrophils Absolute Auto 3.8 K/mm3 (1.3-6.7); Neutrophils Percent Auto 59.3 % (45.5-73.1); Platelet Count Result 144 k/mm3 (150-375); Red Blood Count 4.07 M/mm3 (4.6-6.20); Red Cell Distribution Width 20.3 % (11.5-14.5); White Blood Count 6.5 K/mm3 (4.5-10.0)
[2022-08-30 08:18] LABS: Alanine Aminotransferase 27 U/L (6-50); Albumin Level 4.4 g/dL (3.5-5.1); Alkaline Phosphatase 66 U/L (38-126); Anion Gap 7 mmol/L (8-16); Aspartate Amino Transferase 21 U/L (17-59); Bilirubin,Total 0.9 mg/dL (0.2-1.3); Blood Urea Nitrogen 20 mg/dL (9-20); Carbon Dioxide 27 mmol/L (22-30); Chloride 102 mmol/L (98-107); Cholesterol 112 mg/dL (0-200); Estimated Glomerular Filt Rate > 60; Glucose 136 mg/dL (65-110); HDL Direct 31 mg/dL; Potassium 4.3 mmol/L (3.4-5.0); Sodium 136 mmol/L (137-145); Triglycerides 50 mg/dL (<150)
[2022-08-30 08:21] LABS: Hemoglobin A1C 5.7 % (<5.7)
[2022-08-30 08:28] LABS: LDL Cholesterol Direct 71 mg/dL
[2022-08-30 08:47] LABS: Prostate Specific Antigen 1.4 ng/mL (< OR = 4.0)
[2022-08-30 08:49] LABS: Ovalocytes 1+ (NORMAL)
[2022-08-30 08:50] LABS: Anisocytosis 1+ (NORMAL); Schistocytes None Seen (NORMAL)
[2022-08-30 09:41] LABS: Folic Acid > 20.0 ng/mL (2.76->20)
== END 2022-08-30 07:40 | disposition home or self-care (01) ==
PROVIDERS: PCP Internal Medicine; Visit Provider Internal Medicine
DX: E78.2 Mixed hyperlipidemia (principal); I10 Essential (primary) hypertension; E11.9 Type 2 diabetes mellitus without complications; E53.8 Deficiency of other specified B group vitamins; Z79.899 Other long term (current) drug therapy; Z12.5 Encounter for screening for malignant neoplasm of prostate
CPT/HCPCS: 36415; 80053; 80061; 82607; 82746; 83036; 84153; 85025; G0103

== ENCOUNTER 2022-09-05 16:24 | Emergency (ER) | payer MEDICARE, OTHER, SELFPAY ==
[2022-09-05 16:42] VITALS: BP 110/76; PULSE 111; RESP 20; TEMP 37.1; O2SAT 99
--- NOTE | 2022-09-05 16:49 | ED.EAR ---
HPI - Ear Problem General Chief complaint: Ear Stated complaint: rt ear discomfort Time Seen by Provider: 09/05/22 16:50 Source: patient and RN notes reviewed Mode of arrival: ambulatory Limitations: no limitations History of Present Illness HPI Narrative: 72-year-old male presents with concern for right hearing loss. He reports since yesterday he has had decreased hearing in his right ear and it feels clogged. He denies pain. He denies rhinorrhea, nasal congestion, sore throat, fever. He reports he change the batteries in his hearing aid without relief. He reports he has an appointment with his seat maker next week MD Complaint: decreased hearing Related Data Home Medications Medication Instructions Recorded Confirmed multivitamin 1 tablet PO DAILY 09/17/19 09/05/22 omega-3 fatty acids 1,000 mg 2,000 mg PO BID 01/17/21 09/05/22 capsule (Fish Oil Concentrate) cholecalciferol (vitamin D3) 50 50 mcg PO DAILY 07/04/21 09/05/22 mcg (2,000 unit) capsule Allergies Allergy/AdvReac Type Severity Reaction Status Date / Time Penicillins Allergy Unknown Rash Verified 09/05/22 16:39 Review of Systems Review of Systems: CONSTITUTIONAL: Denies malaise, chills, sweats, or fever. EYES: Denies visual changes, redness, or discharge. ENT: Denies rhinorrhea, congestion, sinus pain, and sore throat. Reports right decreased hearing CARDIOVASCULAR: Denies chest pain, palpitations, or edema. RESPIRATORY: Denies cough. Denies dyspnea. GASTROINTESTINAL: Denies abdominal pain, nausea, vomiting, diarrhea SKIN: Denies rash or itching. MUSCULOSKELETAL: Denies myalgia. NEUROLOGIC: Denies headache. All systems reviewed & are unremarkable except as noted in HPI and below PMFSH Past Medical History Medical History Abnormal finding of blood chemistry Aftercare following right knee joint replacement surgery Airway obstruction Arthritis Back pain Benign essential hypertension BMI 38.0-38.9,adult BMI 39.0-39.9,adult Chronic back pain Colon cancer screening COPD (chronic obstructive pulmonary disease) Dietary counseling and surveillance (11/15/16) DJD (degenerative joint disease) DM2 (diabetes mellitus, type 2) Elevated red blood cell count Encounter for Medicare annual wellness exam Encounter for pre-operative cardiovascular clearance Encounter for routine adult health examination with abnormal findings Encounter for routine adult health examination without abnormal findings Encounter for special screening examination for neoplasm of prostate Hearing loss High blood pressure History of urinary frequency 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 Senile cataract of right eye Swelling of right testicle Umbilical hernia Ventral hernia Vitamin D deficiency Surgical History Surgical History History of knee surgery Presence of right artificial knee joint Status post total left knee replacement Family History Family History Father Hypertension Cerebrovascular accident Family history of cardiovascular disease Mother Hypertension Family history of cardiovascular disease Family history of arthritis Sibling Cerebrovascular accident Social History Social History Smoking status: Never smoker Tobacco type: cigarettes Second hand tobacco smoke exposure: No Additional smoking assessment comments: STATES WAS SOCIAL SMOKER, QUITE 50+ YEARS AGO Alcohol intake: current Alcohol use details: STATES MAYBE 2-3 DRINKS/MONTH Substance use: never Substance use type: does not use Lack of Transportation: No Lack of Food: Never True Current Housing: I Have Housing Concerned About Future Housing: No Difficulty Paying Gas/Electric Bills: No Difficulty Paying for Meds: No Currently Unemployed: No Education: H
== END 2022-09-05 17:11 | disposition home or self-care (01) ==
PROVIDERS: Emergency Provider Nurse Practitioner; PCP Internal Medicine
DX: H74.8X1 Other specified disorders of right middle ear and mastoid (principal); M19.90 Unspecified osteoarthritis, unspecified site; I10 Essential (primary) hypertension; J44.9 Chronic obstructive pulmonary disease, unspecified; E11.9 Type 2 diabetes mellitus without complications; E55.9 Vitamin D deficiency, unspecified; Z96.653 Presence of artificial knee joint, bilateral; Z87.891 Personal history of nicotine dependence
CPT/HCPCS: 99213; G0463

== ENCOUNTER 2022-09-06 14:27 | Outpatient (CLI) | payer MEDICARE, OTHER, SELFPAY ==
[2022-09-06 15:13] LABS: Iron 105 ug/dL (49-181)
[2022-09-06 15:22] LABS: Percent Iron Saturation 28 % (20-50)
[2022-09-07 11:51] LABS: Folic Acid > 20.0 ng/mL (2.76->20)
== END 2022-09-06 14:28 | disposition home or self-care (01) ==
PROVIDERS: PCP Internal Medicine; Visit Provider Internal Medicine
DX: D64.9 Anemia, unspecified (principal); R53.83 Other fatigue
CPT/HCPCS: 36415; 82607; 82728; 82746; 83540; 83550

== ENCOUNTER 2022-09-28 08:49 | Outpatient (CLI) | payer MEDICARE, OTHER, SELFPAY | END 2022-09-28 08:50 | disposition home or self-care (01) | LOC: ANHAUDIO 08:50 | PROVIDERS: PCP Internal Medicine; Visit Provider Otolaryngology | DX: H91.93 Unspecified hearing loss, bilateral (principal) | CPT/HCPCS: 92557; 92567 ==

== ENCOUNTER 2022-11-22 01:28 | Day surgery (SDC) | payer MEDICARE, OTHER, SELFPAY ==
[2022-11-13 13:30] VITALS: BMI 37.7
--- NOTE | 2022-11-21 20:46 | PM.HPGS ---
History of Present Illness History of Present Illness Consent: Risks, benefits, and alternatives have been discussed and questions answered. Patient agrees to proceed with procedure. Chief complaint: other fecal abnormalities Narrative: Khadijah Mckeon is a 72 year old male who is referred for colon cancer screening. a recent Cologuard test was positive Review of Systems Review of Systems: All systems reviewed & are unremarkable except as noted in HPI and below PMFSH Past Medical History Medical History Abnormal finding of blood chemistry Aftercare following right knee joint replacement surgery Airway obstruction Arthritis Back pain Benign essential hypertension BMI 38.0-38.9,adult BMI 39.0-39.9,adult Chronic back pain Colon cancer screening COPD (chronic obstructive pulmonary disease) Dietary counseling and surveillance (11/15/16) DJD (degenerative joint disease) DM2 (diabetes mellitus, type 2) Elevated red blood cell count Encounter for Medicare annual wellness exam Encounter for pre-operative cardiovascular clearance Encounter for routine adult health examination with abnormal findings Encounter for routine adult health examination without abnormal findings Encounter for special screening examination for neoplasm of prostate Hearing loss High blood pressure History of urinary frequency Low hemoglobin 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 Right ear pain Senile cataract of right eye Swelling of right testicle Umbilical hernia Ventral hernia Vitamin D deficiency Surgical History Surgical History History of knee surgery Presence of right artificial knee joint Status post total left knee replacement Family History Family History Father Hypertension Cerebrovascular accident Family history of cardiovascular disease Mother Hypertension Family history of cardiovascular disease Family history of arthritis Sibling Cerebrovascular accident Social History Social History Social History: Caffeine-daily Smoking status: Former smoker Tobacco type: cigarettes Second hand tobacco smoke exposure: No Additional smoking assessment comments: STATES WAS SOCIAL SMOKER, QUITE 50+ YEARS AGO Alcohol intake: current Drinks per week: 1 Alcohol use details: STATES MAYBE 2-3 DRINKS/MONTH Substance use: never Substance use type: does not use Lack of Transportation: No Lack of Food: Never True Current Housing: I Have Housing Concerned About Future Housing: No Difficulty Paying Gas/Electric Bills: No Difficulty Paying for Meds: No Currently Unemployed: No Education: High School Diploma/GED Difficulty w/ Childcare or Family Care: No Living arrangements: with family Occupation/Education: retired Gender identity (if verbalized by the patient): Male Spiritual care concerns: No Meds Home Medications and Allergies Home Medications Medication Instructions Recorded Confirmed Type multivitamin 1 tablet PO DAILY 09/17/19 11/22/22 History omega-3 fatty acids 1,000 mg 2,000 mg PO BID 01/17/21 11/22/22 History capsule (Fish Oil Concentrate) cholecalciferol (vitamin D3) 50 50 mcg PO DAILY 07/04/21 11/22/22 History mcg (2,000 unit) capsule amlodipine 10 mg tablet 10 mg PO QAM #90 tabs 08/07/22 11/22/22 Rx atorvastatin 10 mg tablet 10 mg PO DAILY #90 tabs 08/07/22 11/22/22 Rx lisinopril 20 1 tablet PO DAILY #90 tabs 08/07/22 11/22/22 Rx mg-hydrochlorothiazide 25 mg tablet metformin 500 mg tablet 500 mg PO BID #270 tabs 08/07/22 11/22/22 Rx fluticasone propionate 50 2 spray intranasal DAILY 14 days 09/05/22 11/22/22 Rx mcg/actuation nasal #15.8 mL spray,suspension (Flonase Allergy Relief) fexofenadine 60 mg tablet (Diana 60 mg PO DAILY 09/21/22 11/22/22 History German
[2022-11-22 09:10] LABS: Glucose Point of Care 141 mg/dl (65-105)
[2022-11-22 09:11] VITALS: BP 141/90; PULSE 98; RESP 20; TEMP 36.6; O2SAT 99
[2022-11-22] MEDS: LACTATED RINGERS 1,000 ML 150 ML IV CONT (09:14)
--- NOTE | 2022-11-22 09:31 | WPDANESEPPF ---
Anes - Initial Pre Proc Eval Procedure: Operation Date: 11/22/22 10:30 Proposed Procedures p Colonoscopy - Niko Disa MD Date/Time: 11/22/22 09:31 Surgeon: Niko Dias MD Pre Op Diagnosis: other fecal abnormalities Patient Data Age: 72 Gender: M Height: 1.75 m Weight: 120.2 kg Last Vital Signs Temp 97.8 F 11/22/22 09:11 Pulse 98 11/22/22 09:11 Resp 20 11/22/22 09:11 BP 141/90 H 11/22/22 09:11 Pulse Ox 99 11/22/22 09:11 O2 Del Method Room Air 11/22/22 09:11 Allergies Allergy/AdvReac Type Severity Reaction Status Date / Time Penicillins Allergy Unknown Rash Verified 11/22/22 09:09 Home Medications Medication Instructions Recorded Confirmed Type multivitamin 1 tablet PO DAILY 09/17/19 11/22/22 History omega-3 fatty acids 1,000 mg 2,000 mg PO BID 01/17/21 11/22/22 History capsule (Fish Oil Concentrate) cholecalciferol (vitamin D3) 50 50 mcg PO DAILY 07/04/21 11/22/22 History mcg (2,000 unit) capsule amlodipine 10 mg tablet 10 mg PO QAM #90 tabs 08/07/22 11/22/22 Rx atorvastatin 10 mg tablet 10 mg PO DAILY #90 tabs 08/07/22 11/22/22 Rx lisinopril 20 1 tablet PO DAILY #90 tabs 08/07/22 11/22/22 Rx mg-hydrochlorothiazide 25 mg tablet metformin 500 mg tablet 500 mg PO BID #270 tabs 08/07/22 11/22/22 Rx fluticasone propionate 50 2 spray intranasal DAILY 14 days 09/05/22 11/22/22 Rx mcg/actuation nasal #15.8 mL spray,suspension (Flonase Allergy Relief) fexofenadine 60 mg tablet (Diana 60 mg PO DAILY 09/21/22 11/22/22 History Allergy) Laboratory Tests 11/22/22 09:07 POC Capillary Glucose 141 H mg/dl (65-105) Patient hx anesthesia problems: none Family hx anesthesia problems: none Results Review: All pre-operative results and documents have been reviewed as part of the pre-operative evaluation. [facility] Past Medical History Medical History Abnormal finding of blood chemistry Aftercare following right knee joint replacement surgery Airway obstruction Arthritis Back pain Benign essential hypertension BMI 38.0-38.9,adult BMI 39.0-39.9,adult Chronic back pain Colon cancer screening COPD (chronic obstructive pulmonary disease) Dietary counseling and surveillance (11/15/16) DJD (degenerative joint disease) DM2 (diabetes mellitus, type 2) Elevated red blood cell count Encounter for Medicare annual wellness exam Encounter for pre-operative cardiovascular clearance Encounter for routine adult health examination with abnormal findings Encounter for routine adult health examination without abnormal findings Encounter for special screening examination for neoplasm of prostate Hearing loss High blood pressure History of urinary frequency Low hemoglobin On intermediate card tender drug therapy Right ear pain Senile cataract of right eye Swelling of right testicle Umbilical hernia Ventral hernia Vitamin D deficiency Surgical History Surgical History History of knee surgery Presence of right artificial knee joint Status post total left knee replacement Family History Family History Father Hypertension Cerebrovascular accident Family history of cardiovascular disease Mother Hypertension Family history of cardiovascular disease Family history of arthritis Sibling Cerebrovascular accident Social History Social History Social History: Caffeine-daily Smoking status: Former smoker Tobacco type: cigarettes Second hand tobacco smoke exposure: No Additional smoking assessment comments: STATES WAS SOCIAL SMOKER, QUITE 50+ YEARS AGO Alcohol intake: current Drinks per week: 1 Alcohol use details: STATES MAYBE 2-3 DRINKS/MONTH Substance use: never Substance use type: does not use Lack of Transportation: No [place]
[2022-11-22 10:39] VITALS: BP 117/77; PULSE 84; RESP 20; O2SAT 94
[2022-11-22 10:49] VITALS: BP 137/88; PULSE 84; RESP 22; O2SAT 94
[2022-11-22 10:59] VITALS: BP 135/85; PULSE 78; RESP 18; O2SAT 93
== END 2022-11-22 11:09 | disposition home or self-care (01) ==
PROVIDERS: PCP Internal Medicine; Visit Provider Internal Medicine Gastroenterology
PROC: 0DJD8ZZ Inspection of Lower Intestinal Tract, Via Natural or Artificial Opening Endoscopic (ICD-10-PCS; CPT 45378; principal; 2022-11-22 10:30)
DX: Z12.11 Encounter for screening for malignant neoplasm of colon (principal); R19.5 Other fecal abnormalities; I10 Essential (primary) hypertension; J44.9 Chronic obstructive pulmonary disease, unspecified; E11.9 Type 2 diabetes mellitus without complications; E55.9 Vitamin D deficiency, unspecified; Z87.891 Personal history of nicotine dependence; E66.01 Morbid (severe) obesity due to excess calories; Z68.39 Body mass index [BMI] 39.0-39.9, adult; Z79.84 Long term (current) use of oral hypoglycemic drugs
CPT/HCPCS: G0121; 82948; J2704; J7120

== ENCOUNTER 2023-01-15 07:38 | Outpatient (CLI) | payer MEDICARE, OTHER, SELFPAY ==
[2023-01-15 08:33] LABS: Basophils Absolute Auto 0.1 K/mm3 (0.0-0.1); Basophils Percent Auto 1.3 % (0.2-1.2); Eosinophils Percent Auto 0.5 % (0-4.4); Hematocrit 38.4 % (42.0-52.0); Hemoglobin 12.4 g/dL (14.0-18.0); Immature Granulocyte Absolute 0.02 K/mm3 (0.00-0.031); Immature Granulocyte Percent A 0.3 % (0-0.5); Immature Platelet Fraction Pct 18.8 % (0.9-11.2); Lymphocytes Absolute Auto 2.13 K/mm3 (0.9-3.2); Lymphocytes Percent Auto 35.9 % (18.3-44.2); Mean Corpuscular HGB Conc 32.3 g/dl (32-36); Mean Corpuscular Hemoglobin 32.9 pg (26-34); Mean Corpuscular Volume 101.9 fl (80-100); Mean Platelet Volume 10.9 fl (7.4-10.4); Monocytes Absolute Auto 0.4 K/mm3 (0.1-0.6); Monocytes Percent Auto 6.1 % (2.6-8.5); Neutrophils Absolute Auto 3.3 K/mm3 (1.3-6.7); Neutrophils Percent Auto 55.9 % (45.5-73.1); Platelet Count Result 171 k/mm3 (150-375); Red Blood Count 3.77 M/mm3 (4.6-6.20); Red Cell Distribution Width 19.1 % (11.5-14.5); White Blood Count 5.9 K/mm3 (4.5-10.0)
[2023-01-15 08:44] LABS: Alanine Aminotransferase 30 U/L (6-50); Alkaline Phosphatase 64 U/L (38-126); Anion Gap 7 mmol/L (8-16); Aspartate Amino Transferase 26 U/L (17-59); Bilirubin,Total 0.9 mg/dL (0.2-1.3); Blood Urea Nitrogen 11 mg/dL (9-20); Carbon Dioxide 28 mmol/L (22-30); Chloride 101 mmol/L (98-107); Cholesterol 104 mg/dL (0-200); Estimated Glomerular Filt Rate > 60; Glucose 122 mg/dL (65-110); HDL Direct 32 mg/dL; Potassium 4.2 mmol/L (3.4-5.0); Sodium 136 mmol/L (137-145); Triglycerides 41 mg/dL (<150)
[2023-01-15 08:55] LABS: LDL Cholesterol Direct 62 mg/dL
[2023-01-15 09:14] LABS: Hemoglobin A1C 5.8 % (<5.7)
[2023-01-15 09:19] LABS: Appearance Urine Clear (Clear); Bilirubin Urine Negative (Negative); Blood Urine Negative (Negative); Color Urine Yellow (Yellow); Glucose Urine UA Negative (Negative); Ketones Urine Negative (Negative); Leukocyte Esterase Ur Negative LEU/UL (Negative); Nitrate Urine Negative (Negative); Protein Urine Negative (Negative); Specific Grav Ur 1.014 (1.001-1.035); pH Urine 6.5 (5.0-9.0)
[2023-01-15 09:22] LABS: Add Urine Microscopic? NO
== END 2023-01-15 07:39 | disposition home or self-care (01) ==
PROVIDERS: PCP Internal Medicine; Visit Provider Internal Medicine
DX: E11.9 Type 2 diabetes mellitus without complications (principal); I10 Essential (primary) hypertension; E78.2 Mixed hyperlipidemia; Z79.899 Other long term (current) drug therapy
CPT/HCPCS: 36415; 80053; 80061; 81003; 83036; 85025; 85055

== ENCOUNTER 2023-01-19 01:12 | Day surgery (SDC) | payer MEDICARE, OTHER, SELFPAY ==
[2023-01-18 10:18] VITALS: BMI 37.0
--- NOTE | 2023-01-18 15:59 | PM.HPGS ---
History of Present Illness History of Present Illness Consent: Risks, benefits, and alternatives have been discussed and questions answered. Patient agrees to proceed with procedure. Chief complaint: other fecal abnormalities Narrative: Khadijah Mckeon is a 73 year old male Was referred for colon cancer screening. He had a positive Cologuard test done earlier this year. An attempted colonoscopy in November could not be done because he did not have any significant results from his bowel prep. Formed stool was seen in the rectum Review of Systems Review of Systems: All systems reviewed & are unremarkable except as noted in HPI and below PMFSH Past Medical History Medical History Abnormal finding of blood chemistry Aftercare following right knee joint replacement surgery Airway obstruction Arthritis Back pain Benign essential hypertension BMI 38.0-38.9,adult BMI 39.0-39.9,adult Chronic back pain Colon cancer screening COPD (chronic obstructive pulmonary disease) Dietary counseling and surveillance (11/15/16) DJD (degenerative joint disease) DM2 (diabetes mellitus, type 2) Elevated red blood cell count Encounter for Medicare annual wellness exam Encounter for pre-operative cardiovascular clearance Encounter for routine adult health examination with abnormal findings Encounter for routine adult health examination without abnormal findings Encounter for special screening examination for neoplasm of prostate Hearing loss High blood pressure History of urinary frequency Low hemoglobin On intermodal dispatcher drug therapy Right ear pain Senile cataract of right eye Swelling of right testicle Umbilical hernia Ventral hernia Vitamin D deficiency Surgical History Surgical History History of knee surgery Presence of right artificial knee joint Status post total left knee replacement Family History Family History Father Hypertension Cerebrovascular accident Family history of cardiovascular disease Mother Hypertension Family history of cardiovascular disease Family history of arthritis Sibling Cerebrovascular accident Social History Social History Social History: Caffeine-daily Smoking status: Former smoker Tobacco type: cigarettes Second hand tobacco smoke exposure: No Additional smoking assessment comments: SOCIAL SMOKERS-QUIT 50YRS AGO Alcohol intake: current Drinks per week: 1 Alcohol use details: DRINK Substance use: never Substance use type: does not use Lack of Transportation: No Lack of Food: Never True Current Housing: I Have Housing Concerned About Future Housing: No Difficulty Paying Gas/Electric Bills: No Difficulty Paying for Meds: No Currently Unemployed: No Education: High School Diploma/GED Difficulty w/ Childcare or Family Care: No Living arrangements: with family Occupation/Education: retired Gender identity (if verbalized by the patient): Male Spiritual care concerns: No Meds Home Medications and Allergies Home Medications Medication Instructions Recorded Confirmed Type multivitamin 1 tablet PO DAILY 09/17/19 01/10/23 History omega-3 fatty acids 1,000 mg 2,000 mg PO BID 01/17/21 01/10/23 History capsule (Fish Oil Concentrate) cholecalciferol (vitamin D3) 50 50 mcg PO DAILY 07/04/21 01/10/23 History mcg (2,000 unit) capsule fluticasone propionate 50 2 spray intranasal DAILY 14 days 09/05/22 01/10/23 Rx mcg/actuation nasal #15.8 mL spray,suspension (Flonase Allergy Relief) fexofenadine 60 mg tablet (Diana 60 mg PO DAILY 09/21/22 01/10/23 History Allergy) amlodipine 10 mg tablet See Rx Instructions .Route 12/26/22 01/10/23 Rx .COMPLEX #90 tabs lisinopril 20 See Rx Instructions .Route 12/26/22 01/10/23 Rx mg-hy
--- NOTE | 2023-01-19 08:04 | WPDANESEPPF ---
Anes - Initial Pre Proc Eval Procedure: Operation Date: 01/19/23 11:30 Proposed Procedures p Colonoscopy - Niko Dias MD Date/Time: 01/19/23 08:04 Surgeon: Niko Dias MD Pre Op Diagnosis: other fecal abnormalities Patient Data Age: 73 Gender: M Height: 1.71 m Weight: 109 kg Allergies Allergy/AdvReac Type Severity Reaction Status Date / Time Penicillins Allergy Intermediate Rash Verified 01/19/23 10:14 Home Medications Medication Instructions Recorded Confirmed Type multivitamin 1 tablet PO DAILY 09/17/19 01/10/23 History omega-3 fatty acids 1,000 mg 2,000 mg PO BID 01/17/21 01/10/23 History capsule (Fish Oil Concentrate) cholecalciferol (vitamin D3) 50 50 mcg PO DAILY 07/04/21 01/10/23 History mcg (2,000 unit) capsule fluticasone propionate 50 2 spray intranasal DAILY 14 days 09/05/22 01/10/23 Rx mcg/actuation nasal #15.8 mL spray,suspension (Flonase Allergy Relief) fexofenadine 60 mg tablet (Diana 60 mg PO DAILY 09/21/22 01/10/23 History Allergy) amlodipine 10 mg tablet See Rx Instructions .Route 12/26/22 01/10/23 Rx .COMPLEX #90 tabs lisinopril 20 See Rx Instructions .Route 12/26/22 01/10/23 Rx mg-hydrochlorothiazide 25 mg tablet .COMPLEX #90 tabs metformin 500 mg tablet 500 mg PO BID #180 tabs 12/26/22 01/10/23 Rx atorvastatin 10 mg tablet 5 mg PO DAILY #90 tabs 01/16/23 01/19/23 Rx Patient hx anesthesia problems: none Family hx anesthesia problems: none Results Review: All pre-operative results and documents have been reviewed as part of the pre-operative evaluation. [facility] Past Medical History Medical History Abnormal finding of blood chemistry Aftercare following right knee joint replacement surgery Airway obstruction Arthritis Back pain Benign essential hypertension BMI 38.0-38.9,adult BMI 39.0-39.9,adult Chronic back pain Colon cancer screening COPD (chronic obstructive pulmonary disease) Dietary counseling and surveillance (07/12/17) DJD (degenerative joint disease) DM2 (diabetes mellitus, type 2) Elevated red blood cell count Encounter for Medicare annual wellness exam Encounter for pre-operative cardiovascular clearance Encounter for routine adult health examination with abnormal findings Encounter for routine adult health examination without abnormal findings Encounter for special screening examination for neoplasm of prostate Hearing loss High blood pressure History of urinary frequency Low hemoglobin 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 Right ear pain Senile cataract of right eye Swelling of right testicle Umbilical hernia Ventral hernia Vitamin D deficiency Surgical History Surgical History History of knee surgery Presence of right artificial knee joint Status post total left knee replacement Family History Family History Father Hypertension Cerebrovascular accident Family history of cardiovascular disease Mother Hypertension Family history of cardiovascular disease Family history of arthritis Sibling Cerebrovascular accident Social History Social History Social History: Caffeine-daily Smoking status: Former smoker Tobacco type: cigarettes Second hand tobacco smoke exposure: No Additional smoking assessment comments: SOCIAL SMOKERS-QUIT 50YRS AGO Alcohol intake: current Drinks per week: 1 Alcohol use details: DRINK Substance use: never Substance use type: does not use Lack of Transportation: No Lack of Food: Never True Current Housing: I Have Housing Concerned About Future Housing: No Difficulty Paying Gas/Electric Bills: No Difficulty Paying for Meds: No Currently Unemployed: No Education: High School Diploma/GED Difficulty w/ Childcare or Family Care: No [facility]
[2023-01-19 10:15] VITALS: BP 139/73; PULSE 87; RESP 20; TEMP 36.1; O2SAT 100; BMI 39.1
[2023-01-19] MEDS: LACTATED RINGERS 1,000 ML 150 ML IV CONT (10:28)
[2023-01-19 11:04] LABS: Glucose Point of Care 116 mg/dl (65-105)
[2023-01-19 11:38] VITALS: BP 118/72; PULSE 82; RESP 20; O2SAT 95
[2023-01-19 11:48] VITALS: BP 121/76; PULSE 75; RESP 18; O2SAT 97
[2023-01-19 11:58] VITALS: BP 130/79; PULSE 71; RESP 22; O2SAT 97
== END 2023-01-19 12:14 | disposition home or self-care (01) ==
PROVIDERS: PCP Internal Medicine; Visit Provider Internal Medicine Gastroenterology
PROC: 0DJD8ZZ Inspection of Lower Intestinal Tract, Via Natural or Artificial Opening Endoscopic (ICD-10-PCS; CPT 45378; principal; 2023-01-19 11:30)
DX: Z09 Encounter for follow-up examination after completed treatment for conditions other than malignant neoplasm (principal); R19.5 Other fecal abnormalities; K57.30 Diverticulosis of large intestine without perforation or abscess without bleeding; K59.39 Other megacolon; J44.9 Chronic obstructive pulmonary disease, unspecified; E11.9 Type 2 diabetes mellitus without complications; I10 Essential (primary) hypertension; E55.9 Vitamin D deficiency, unspecified; Z87.891 Personal history of nicotine dependence; Z79.84 Long term (current) use of oral hypoglycemic drugs; E66.9 Obesity, unspecified; Z68.39 Body mass index [BMI] 39.0-39.9, adult
CPT/HCPCS: 45378; 82948; J2704; J7120

== ENCOUNTER 2023-05-24 07:28 | Outpatient (CLI) | payer MEDICARE, SELFPAY ==
[2023-05-24 08:21] LABS: Basophils Absolute Auto 0.1 K/mm3 (0.0-0.1); Basophils Percent Auto 1.4 % (0.2-1.2); Eosinophils Percent Auto 0.4 % (0-4.4); Hematocrit 38.4 % (42.0-52.0); Hemoglobin 11.8 g/dL (14.0-18.0); Immature Granulocyte Absolute 0.01 K/mm3 (0.00-0.031); Immature Granulocyte Percent A 0.2 % (0-0.5); Lymphocytes Absolute Auto 2.25 K/mm3 (0.9-3.2); Lymphocytes Percent Auto 39.9 % (18.3-44.2); Mean Corpuscular HGB Conc 30.7 g/dl (32-36); Mean Corpuscular Hemoglobin 32.1 pg (26-34); Mean Corpuscular Volume 104.3 fl (80-100); Mean Platelet Volume 12.6 fl (7.4-10.4); Monocytes Absolute Auto 0.4 K/mm3 (0.1-0.6); Monocytes Percent Auto 6.6 % (2.6-8.5); Neutrophils Absolute Auto 2.9 K/mm3 (1.3-6.7); Neutrophils Percent Auto 51.5 % (45.5-73.1); Platelet Count Result 130 k/mm3 (150-375); Red Blood Count 3.68 M/mm3 (4.6-6.20); Red Cell Distribution Width 17.8 % (11.5-14.5); White Blood Count 5.6 K/mm3 (4.5-10.0)
[2023-05-24 08:25] LABS: Appearance Urine Clear (Clear); Bacteria Urine None Seen /hpf; Bilirubin Urine Negative (Negative); Blood Urine Negative (Negative); Color Urine Yellow (Yellow); Glucose Urine UA Negative (Negative); Ketones Urine Negative (Negative); Leukocyte Esterase Ur Trace LEU/UL (Negative); Nitrate Urine Negative (Negative); Non Pathogenic Casts 0-2; Protein Urine Negative (Negative); RBC Urine 0-2 /hpf (0-2); Squamous Epithelial Cell Urine None seen /hpf (Few); Urobilinogen Urine 0.2 mg/dL (<2.0); WBC Urine 0-5 /hpf
[2023-05-24 08:32] LABS: Add Urine Microscopic? YES
[2023-05-24 08:33] LABS: Alanine Aminotransferase 26 U/L (6-50); Alkaline Phosphatase 73 U/L (38-126); Anion Gap 8 mmol/L (8-16); Aspartate Amino Transferase 22 U/L (17-59); Blood Urea Nitrogen 12 mg/dL (9-20); Carbon Dioxide 28 mmol/L (22-30); Chloride 100 mmol/L (98-107); Cholesterol 112 mg/dL (0-200); Estimated Glomerular Filt Rate > 60; Glucose 112 mg/dL (65-110); HDL Direct 26 mg/dL; Potassium 3.9 mmol/L (3.4-5.0); Sodium 136 mmol/L (137-145); Triglycerides 85 mg/dL (<150)
[2023-05-24 08:43] LABS: LDL Cholesterol Direct 73 mg/dL
[2023-05-24 09:02] LABS: Prostate Specific Antigen 1.7 ng/mL (< OR = 4.0)
[2023-05-24 09:17] LABS: Hemoglobin A1C 5.9 % (<5.7)
[2023-05-24 11:01] LABS: Folic Acid > 20.0 ng/mL (2.76->20)
== END 2023-05-24 07:29 | disposition home or self-care (01) ==
LOC: ANHLAB 07:33
PROVIDERS: PCP Internal Medicine; Visit Provider Internal Medicine
DX: E11.9 Type 2 diabetes mellitus without complications (principal); I10 Essential (primary) hypertension; E78.2 Mixed hyperlipidemia; Z12.5 Encounter for screening for malignant neoplasm of prostate; Z79.899 Other long term (current) drug therapy; R53.83 Other fatigue
CPT/HCPCS: 36415; 80053; 80061; 81001; 82607; 82746; 83036; 84153; 85025; G0103

== ENCOUNTER 2023-10-18 07:00 | Outpatient (CLI) | payer MEDICARE, SELFPAY ==
[2023-10-18 07:46] LABS: Alanine Aminotransferase 16 U/L (6-50); Albumin Level 4.1 g/dL (3.5-5.1); Alkaline Phosphatase 74 U/L (38-126); Anion Gap 6 mmol/L (4-12); Aspartate Amino Transferase 22 U/L (17-59); Bilirubin,Total 1.2 mg/dL (0.2-1.3); Blood Urea Nitrogen 16 mg/dL (9-20); Calcium 9.4 mg/dL (8.4-10.2); Carbon Dioxide 29 mmol/L (22-30); Chloride 104 mmol/L (98-107); Cholesterol 116 mg/dL (0-200); Estimated Glomerular Filt Rate > 60; Glucose 113 mg/dL (65-110); HDL Direct 31 mg/dL; Potassium 4.1 mmol/L (3.4-5.0); Sodium 139 mmol/L (137-145); Triglycerides 63 mg/dL (<150)
[2023-10-18 07:57] LABS: LDL Cholesterol Direct 85 mg/dL
[2023-10-18 09:34] LABS: Hemoglobin A1C 5.7 % (<5.7)
== END 2023-10-18 07:01 | disposition home or self-care (01) ==
LOC: ANHLAB 07:03
PROVIDERS: PCP Internal Medicine; Visit Provider Internal Medicine
DX: I10 Essential (primary) hypertension (principal); E11.9 Type 2 diabetes mellitus without complications; E78.2 Mixed hyperlipidemia
CPT/HCPCS: 36415; 80053; 80061; 83036

== ENCOUNTER 2024-02-28 08:11 | Outpatient (CLI) | payer MEDICARE, SELFPAY ==
[2024-02-28 08:45] LABS: Add Urine Microscopic? YES; Appearance Urine Cloudy (Clear); Bacteria Urine None Seen /hpf; Bilirubin Urine Negative (Negative); Blood Urine Negative (Negative); Color Urine Yellow (Yellow); Glucose Urine UA Negative (Negative); Ketones Urine Negative (Negative); Leukocyte Esterase Ur Negative LEU/UL (Negative); Nitrate Urine Negative (Negative); Non Pathogenic Casts 0-2; Protein Urine Negative (Negative); Specific Grav Ur 1.012 (1.001-1.035); Squamous Epithelial Cell Urine None Seen /hpf (Few); WBC Urine 0-5 /hpf (0-3); pH Urine 6.5 (5.0-9.0)
[2024-02-28 08:48] LABS: Alanine Aminotransferase 17 U/L (6-50); Albumin Level 4.2 g/dL (3.5-5.1); Alkaline Phosphatase 75 U/L (38-126); Anion Gap 8 mmol/L (4-12); Aspartate Amino Transferase 18 U/L (17-59); Bilirubin,Total 1.3 mg/dL (0.2-1.3); Blood Urea Nitrogen 14 mg/dL (9-20); Calcium 9.5 mg/dL (8.4-10.2); Carbon Dioxide 28 mmol/L (22-30); Chloride 101 mmol/L (98-107); Cholesterol 117 mg/dL (0-200); Estimated Glomerular Filt Rate > 60; Glucose 125 mg/dL (65-110); HDL Direct 28 mg/dL; Potassium 4.2 mmol/L (3.4-5.0); Sodium 137 mmol/L (137-145); Triglycerides 82 mg/dL (<150); Uric Acid 6.4 mg/dL (3.5-8.5)
[2024-02-28 08:59] LABS: LDL Cholesterol Direct 67 mg/dL
[2024-02-28 09:01] LABS: Hemoglobin A1C 6.2 % (<5.7)
[2024-02-28 09:32] LABS: Free T4 Free Thyroxine 1.16 ng/mL (0.78-2.19)
[2024-02-28 09:57] LABS: Creatinine Urine 96.3 mg/dL
[2024-02-28 10:02] LABS: MALB Creatinine Ratio 57.8 mg/g (0-30); Microalbumin Urine Random 55.7 mg/L (0-16.7)
== END 2024-02-28 08:12 | disposition home or self-care (01) ==
PROVIDERS: PCP Internal Medicine; Visit Provider Internal Medicine
DX: I10 Essential (primary) hypertension (principal); Z13.29 Encounter for screening for other suspected endocrine disorder; Z79.899 Other long term (current) drug therapy; E11.9 Type 2 diabetes mellitus without complications; E78.2 Mixed hyperlipidemia
CPT/HCPCS: 36415; 80053; 80061; 81001; 82043; 83036; 84439; 84443; 84550

== ENCOUNTER 2024-03-17 15:01 | Outpatient (CLI) | payer MEDICARE, SELFPAY ==
--- NOTE | ~2024-03-17 | CT_ITS ---
CLINICAL INDICATION: Microscopic hematuria COMPARISON: 10/18/2020. TECHNIQUE: Multiple contiguous axial images of the abdomen and pelvis were performed both prior to an d following the administration of with 100 mL Omnipaque-350 intravenous contrast The dose-length product (DLP) was 2858.14 mGy-cm. Automated exposure control and iterative reconstruction technique were employed. FINDINGS/OBSERVATIONS: Visualized lower thorax: The bilateral lung bases are clear. The heart is of normal size, without pericardial effusion. Description Liver: The liver is not enlarged and enhances homogeneously. Gallbladder and biliary system: The gallbladder is only minimally distended, and otherwise unremarkable. Pancreas: The pancreas enhances homogeneously without ductal dilatation. Spleen: The spleen enhances homogeneously and is not enlarged measuring 9 cm in longitudinal dimension. Kidneys: The bilateral kidneys enhance symmetrically without hydronephrosis or renal calculi. Adrenal glands: Unremarkable. Gastrointestinal tract: The rectum is distended with stool. The sigmoid colon is redundant and markedly distended extending into the upper abdomen and measuring 12 to 14 cm in caliber. This has progressed significantly since the 2020 examination. Appendix: The air-filled appendix is of normal caliber and contains an appendicolith (axial series, images 91-1 03). Vasculature: Calcified atherosclerotic disease without aneurysmal dilatation. Lymph nodes: No pathologically enlarged or morphologically suspicious lymph nodes within the retroperitoneum or at the root of the mesentery. Pelvic structures: The bladder is minimally distended, opacifies with contrast and is unremarkable. The prostate gland is significantly enlarged measuring 6.5 x 8.6 x 8 cm (anterior to posterior x medi al to lateral x cranial to caudal dimension). Mass effect from the enlarged prostate gland likely sierra rows the distal sigmoid colon into the rectum. Body wall and musculoskeletal: Degenerative disease within the lower thoracic and lumbosacral spines, with osteophyte formation, dis c space narrowing, endplate changes and vacuum phenomenon. IMPRESSION: No obstructive uropathy. Significant distention of the redundant sigmoid colon to 14 cm in caliber. Enlargement of the prostate gland demonstrating mass effect on the base of the bladder and the distal sigmoid colon. Reviewed, dictated and finalized at location A. CIATE PROFESSOR OF SURGERY
== END 2024-03-17 15:02 | disposition home or self-care (01) ==
PROVIDERS: PCP Internal Medicine; Visit Provider Internal Medicine
DX: R31.29 Other microscopic hematuria (principal); N40.0 Benign prostatic hyperplasia without lower urinary tract symptoms
CPT/HCPCS: 74178; Q9967

== ENCOUNTER 2024-07-16 07:15 | Outpatient (CLI) | payer MEDICARE, SELFPAY ==
--- OUTSIDE RECORDS SUMMARY | 2024-07-16 07:22 | XMS_ITS | Encounter Summary ---
Author Organization [facility] Address [address] [place] [address] Care Team Providers Care Metal Tank Erector Name Role Phone Unavailable Primary Care Provider Unavailabl e Encounter Details Date Type Department Care Team (Late st Contact Info) Description 03/15/2023 Lab Requisition [facility] - DermPath Lab [address] [place] [address] Sadiq Doran MD [address] [place] [address] Social History Tobacco Use Types Packs/Day Years Used Date Smoking Tobacco: Never Assessed Sex and Gender Information Value Date Recorded Sex Assigned at Not on file Gender Identity Not on file Sexual Orientation Not on file documented as of this encounter Plan of Treatment Not on file documented as of this encounter Procedures Procedure Name Priority Date/Time Associated Diagnosis Comments DERMATOPATHOLOGY Routine 03/14/2023 12:0 0 AM BICYCLE REPAIR TECHNICIAN documented in this encounter Results * DERMATOPATHOLOGY (03/14/2023 12:00 AM BICYCLE REPAIR TECHNICIAN) Case Report Dermatopathology Report Case: [id number] Authorizing Provider: Sadiq Doran MD Collected: 03/14/2023 12:00 AM Ordering Location: [facility] DermPath Lab Received: 03/15/2023 09:36 AM Pathologist: Marlene Renteria MD Specimen: Skin, left lat chest 3 2:35 PM BICYCLE REPAIR TECHNICIAN DERMATOPATHOLOGY LABORATORY Final Diagnosis Specimen A. SKIN, left lat chest: NEVUS LIPOMATOSUS SUPERFICIALIS (D17.30) 3 2:35 PM BICYCLE REPAIR TECHNICIAN DERMATOPATHOLOGY LABORATORY Clinical History Nevus Lipomatous vs giant Aero Path# [id number] 3 2:35 PM BICYCLE REPAIR TECHNICIAN DERMATOPATHOLOGY LABORATORY Gross Description Specimen A: Received is one formalin filled container labeled with the patient's name and designated left lat chest. The specimen consists of a shave biopsy measuring [id number] mm. Jar 1. 3 2:35 PM [facility] Microscopic Description Specimen A. SKIN, left lat chest: There is a gently folded epidermis surrounding a connective tissue core in which fat and collagen are intermingled. 3 2:35 PM [facility] Disclaimer An external and internal positive and negative controls are appropriate for the histochemical, immunohistochemical and immunofluorescence stain(s) in this case (if any), except where stated explicitly. The performance characteristics of the stain(s) cited in this report were developed and its performance characteristic determined by the Dermatopathology Laboratory at [facility], directed by Dr. Jerome Cuadra. These tests need not be, and therefore are not, approved by the [place] Food and Drug Administration. The tests are used for clinical purposes. Billing Codes Specimen Charges Stain Charges 55227 1 3 2:35 PM [facility] Embedded Images 3 2:35 PM [facility] Pathology/Cytolog y TISSUE SPECIMEN FROM SKIN / Unknown 03/14/2023 03/15/2023 9:36 AM BICYCLE REPAIR TECHNICIAN Sadiq Doran MD LAB - PATHOLOGY/CYTO LOGY ORDERABLES DERMATOPATHOLOGY LABORATORY [facility] - Department of Dermatology [address], [address] [phone] documented in this encounter Visit Diagnoses Not on filedocumented in this encounter
--- OUTSIDE RECORDS SUMMARY | 2024-07-16 07:22 | XMS_ITS | Encounter Summary ---
Author Organization [facility] Address [address] [place] [address] Care Team Providers Care Gift Packer Name Role Phone Unavailable Primary Care Provider Unavailabl e Encounter Details Date Type Department Care Team (Late st Contact Info) Description 02/05/2023 Lab Requisition [facility] - DermPath Lab [address] [place] [address] Sadiq Doran MD [address] [place] [address] Social History Tobacco Use Types Packs/Day Years Used Date Smoking Tobacco: Never Assessed Sex and Gender Information Value Date Recorded Sex Assigned at Not on file Gender Identity Not on file Sexual Orientation Not on file documented as of this encounter Plan of Treatment Not on file documented as of this encounter Procedures Procedure Name Priority Date/Time Associated Diagnosis Comments DERMATOPATHOLOGY Routine 02/02/2023 12:0 0 AM CDT documented in this encounter Results * DERMATOPATHOLOGY (02/02/2023 12:00 AM CDT) Case Report Dermatopathology Report Case: [id number] Authorizing Provider: Sadiq Doran MD Collected: 02/02/2023 12:00 AM Ordering Location: [facility] DermPath Lab Received: 02/05/2023 04:40 PM Pathologist: Marichuy Lopez MD Specimens: A) - Skin, left mid upper back B) - Skin, right helix 3 1:00 PM CDT DERMATOPATHOLOGY LABORATORY Final Diagnosis Specimen A. SKIN, left mid upper back: BASAL CELL CARCINOMA, NODULAR TYPE (C44.519) Specimen B. SKIN, right helix: SQUAMOUS CELL CARCINOMA IN SITU, PRESENT AT THE BASE OF THE SPECIMEN (D04.21) (see microscopic description and comment) 1:00 PM CDT DERMATOPATHOLOGY LABORATORY Clinical History A: BCCA Path# [id number] B: AK vs SK vs SCCA Path# [id number] 1:00 PM T DERMATOPATHOLOGY LABORATORY Gross Description Specimen A: Received is one formalin filled container labeled with the patient's name and designated left mid upper back. The specimen consists of a shave biopsy measuring 6x5x2 mm. Jar 0. Specimen B: Received is one formalin filled container labeled with the patient's name and designated right helix. The specimen consists of a shave biopsy measuring 9x6x2 mm. Jar 0. 1:00 PM T DERMATOPATHOLOGY LABORATORY Microscopic Description Specimen A. SKIN, left mid upper back: Within the dermis there are aggregates of basaloid cells with a high nuclear to cytoplasmic ratio and peripheral palisading. Specimen B. SKIN, right helix: The epidermis shows parakeratosis, full thickness disorderly maturation of keratinocytes, mitoses at different levels, and dyskeratotic cells. The lesion extends to the base of the biopsy. COMMENT: An invasive squamous cell carcinoma cannot be ruled out. 1:00 PM T DERMATOPATHOLOGY LABORATORY Disclaimer An external and internal positive and negative controls are appropriate for the histochemical, immunohistochemical and immunofluorescence stain(s) in this case (if any), except where stated explicitly. The performance characteristics of the stain(s) cited in this report were developed and its performance characteristic determined by the Dermatopathology Laboratory at [facility], directed by Dr. Jerome Cuadra. These tests need not be, and therefore are not, approved by the [place] Food and Drug Administration. The tests are used for clinical purposes. Billing Codes Specimen Charges Stain Charges 94669 37560 1 1 1:00 PM CDT DERMATOPATHOLOGY LABORATORY Embedded Images 1:00 PM CDT DERMATOPATHOLOGY LABORATORY Pathology/Cytology TISSUE SPECIMEN FROM SKIN / Unknown 02/02/2023 02/05/2023 4:40 PM CDT Miscellaneous samples (specimen) TISSUE SPECIMEN FROM SKIN / Unknown 02/02/2023 02/05/2023 4:40 PM CDT Sadiq Doran MD LAB - PATHOLOGY/CYTO LOGY ORDERABLES DERMATOPATHOLOGY LABORATORY [facility] - Department of Dermatology [facility] Medicine [address] [place] [address], [address] [phone] documented in this encounter Visit Diagnoses Not on filedocumented in this encounter
--- OUTSIDE RECORDS SUMMARY | 2024-07-16 07:22 | XMS_ITS | Referral Summary ---
Author Organization [facility] Address [address] [place] [address] Care Team Providers Care Regional Commercial Sales Manager Name Role Phone Unavailable Primary Care Provider Unavailabl e Source Comments [facility],non-owned Affiliates and Associated Physician Practices is amultiple site organization consisting of ambulatory clinics and hospital sitesin [place], [place], [place] and [place]. This disclosure is being madepursuant to the Care Everywhere program and may not contain all information available regarding this patient. Last updated 18.[facility] Social History Tobacco Use Types Packs/Day Years Used Date Smoking Tobacco: Never Assessed Sex and Gender Information Value Date Recorded Sex Assigned at Not on file Gender Identity Not on file Sexual Orientation Not on file Plan of Treatment Not on file
--- OUTSIDE RECORDS SUMMARY | 2024-07-16 07:22 | XMS_ITS | Clinical Summary ---
Author Organization [facility] Address [address] [place] [address] Care Team Providers Care Business Development Manager Name Role Phone Unavailable Primary Care Provider Unavailabl e Source Comments [facility],non-owned Affiliates and Associated Physician Practices is amultiple site organization consisting of ambulatory clinics and hospital sitesin [place], [place], [place] and [place]. This disclosure is being madepursuant to the Care Everywhere program and may not contain all information available regarding this patient. Last updated 18.[facility] Social History Tobacco Use Types Packs/Day Years Used Date Smoking Tobacco: Never Assessed Sex and Gender Information Value Date Recorded Sex Assigned at Not on file Gender Identity Not on file Sexual Orientation Not on file Plan of Treatment Health Maintenance Due Date Last Done Comments HEPATITIS C SCREENING 01/08/1966 DTAP/TDAP/TD VACCINES (1 - Tdap) 01/12/1967 PNEUMOCOCCAL VACCINE 50+ (1 of 1 - PCV) 01/12/1998 ZOSTER VACCINE (1 of 2) 01/12/1998 Respiratory Syncytial Virus (RSV) Vaccine Pt: or over 60 yrs (1 - 1-dose 75+ series) 01/12/2023 COVID-19 VACCINE ( - 2023-2 5 season) 2024 INFLUENZA VACCINE (#1) 2024 DEPRESSION SCREENING 05/07/2024 HEPATITIS B VACCINE Aged Out No longe r eligible based on patient's age to complete this topic HIB VACCINE Aged Out No longer eligi ble based on patient's age to complete this topic HPV VACCINE Aged Out No longer eligi ble based on patient's age to complete this topic MENINGOCOCCAL (Group B) VACC INE SHARED DECISION-MAKING Aged Out No longer eligibl e based on patient's age to complete this topic MENINGOCOCCAL GROUPS A/C/Y/W VACCINE Aged Out No longer eligible b ased on patient's age to complete this topic
--- OUTSIDE RECORDS SUMMARY | 2024-07-16 07:22 | XMS_ITS | Patient Health Summary ---
Author Organization [facility] Address [address] [place] [address] Care Team Providers Care [place] Attendant Name Role Phone Unavailable Primary Care Provider Unavailabl e Note from [facility],non-owned Affiliates and Associated Physician Practices is amultiple site organization consisting of ambulatory clinics and hospital sitesin [place], [place] and [place]. This disclosure is being madepursuant to the Care Everywhere program and may not contain all information available regarding this patient. Last updated 18.[facility] Social History Tobacco Use Types Packs/Day Years Used Date Smoking Tobacco: Never Assessed Sex and Gender Information Value Date Recorded Sex Assigned at Not on file Gender Identity Not on file Sexual Orientation Not on file Procedures * DERMATOPATHOLOGY(Performed 03/14/2023) * DERMATOPATHOLOGY(Performed 02/02/2023) Results * DERMATOPATHOLOGY (03/14/2023 12:00 AM CERTIFIED ALCOHOL AND DRUG COUNSELOR) Only the most recent of2 resultswithin the time period is included. Case Report Dermatopathology Report Case: [id number] Authorizing Provider: Sadiq Doran MD Collected: 03/14/2023 12:00 AM Ordering Location: [facility] Lab Received: 03/15/2023 09:36 AM Pathologist: Marlene Renteria MD Specimen: Skin, left lat chest 3 2:35 PM CERTIFIED ALCOHOL AND DRUG COUNSELOR DERMATOPATHOLOGY LABORATORY Final Diagnosis Specimen A. SKIN, left lat chest: NEVUS LIPOMATOSUS SUPERFICIALIS (D17.30) 3 2:35 PM CERTIFIED ALCOHOL AND DRUG COUNSELOR DERMATOPATHOLOGY LABORATORY Clinical History Nevus Lipomatous vs giant Aero Path# [id number] 3 2:35 PM CERTIFIED ALCOHOL AND DRUG COUNSELOR DERMATOPATHOLOGY LABORATORY Gross Description Specimen A: Received is one formalin filled container labeled with the patient's name and designated left lat chest. The specimen consists of a shave biopsy measuring [id number] mm. Jar 1. 3 2:35 PM [facility] DERMATOPATHOLOGY LABORATORY Microscopic Description Specimen A. SKIN, left lat chest: There is a gently folded epidermis surrounding a connective tissue core in which fat and collagen are intermingled. 3 2:35 PM CERTIFIED ALCOHOL AND DRUG COUNSELOR DERMATOPATHOLOGY LABORATORY Disclaimer An external and internal positive and negative controls are appropriate for the histochemical, immunohistochemical and immunofluorescence stain(s) in this case (if any), except where stated explicitly. The performance characteristics of the stain(s) cited in this report were developed and its performance characteristic determined by the Dermatopathology Laboratory at [facility], directed by Dr. Jerome Cuadra. These tests need not be, and therefore are not, approved by the [place] Food and Drug Administration. The tests are used for clinical purposes. Billing Codes Specimen Charges Stain Charges 14367 1 3 2:35 PM CERTIFIED ALCOHOL AND DRUG COUNSELOR DERMATOPATHOLOGY LABORATORY Embedded Images 3 2:35 PM CERTIFIED ALCOHOL AND DRUG COUNSELOR DERMATOPATHOLOGY LABORATORY Pathology/Cytolog y TISSUE SPECIMEN FROM SKIN / Unknown 03/14/2023 03/15/2023 9:36 AM CERTIFIED ALCOHOL AND DRUG COUNSELOR Sadiq Doran MD LAB - PATHOLOGY/CYTO LOGY ORDERABLES DERMATOPATHOLOGY LABORATORY [facility] - Department of Dermatology [address], [address] [phone]
[2024-07-16 07:45] LABS: Basophils Absolute Auto 0.1 K/mm3 (0.0-0.1); Basophils Percent Auto 1.5 % (0.2-1.2); Eosinophils Percent Auto 0.4 % (0-4.4); Hematocrit 34.2 % (42.0-52.0); Hemoglobin 10.5 g/dL (14.0-18.0); Immature Granulocyte Absolute 0.02 K/mm3 (0.00-0.031); Immature Granulocyte Percent A 0.4 % (0-0.5); Immature Platelet Fraction Pct 22.2 % (0.9-11.2); Lymphocytes Percent Auto 36.9 % (18.3-44.2); Mean Corpuscular HGB Conc 30.7 g/dl (32-36); Mean Corpuscular Hemoglobin 31.1 pg (26-34); Mean Corpuscular Volume 101.2 fl (80-100); Monocytes Absolute Auto 0.3 K/mm3 (0.1-0.6); Monocytes Percent Auto 5.2 % (2.6-8.5); Neutrophils Percent Auto 55.6 % (45.5-73.1); Platelet Count Result 98 k/mm3 (150-375); Red Blood Count 3.38 M/mm3 (4.6-6.20); Red Cell Distribution Width 19.8 % (11.5-14.5); White Blood Count 5.4 K/mm3 (4.5-10.0)
[2024-07-16 08:26] LABS: Alanine Aminotransferase 16 U/L (6-50); Albumin Level 4.4 g/dL (3.5-5.1); Alkaline Phosphatase 68 U/L (38-126); Anion Gap 8 mmol/L (4-12); Aspartate Amino Transferase 17 U/L (17-59); Bilirubin,Total 0.8 mg/dL (0.2-1.3); Blood Urea Nitrogen 24 mg/dL (9-20); Calcium 9.7 mg/dL (8.4-10.2); Carbon Dioxide 28 mmol/L (22-30); Chloride 103 mmol/L (98-107); Cholesterol 96 mg/dL (0-200); Estimated Glomerular Filt Rate > 60; Glucose 125 mg/dL (65-110); HDL Direct 28 mg/dL; Potassium 4.2 mmol/L (3.4-5.0); Sodium 139 mmol/L (137-145); Triglycerides 59 mg/dL (<150)
[2024-07-16 08:37] LABS: LDL Cholesterol Direct 52 mg/dL
[2024-07-16 09:44] LABS: Iron 45 ug/dL (49-181)
[2024-07-16 09:54] LABS: Percent Iron Saturation 10 % (20-50)
[2024-07-16 10:06] LABS: Free T4 Free Thyroxine 1.28 ng/dL (0.78-2.19); Vitamin D 25 Hydroxy 52.6 ng/mL
[2024-07-16 10:20] LABS: Ferritin 8.96 ng/mL (11.1-264)
[2024-07-16 10:26] LABS: Folic Acid 15.7 ng/mL (2.76->20)
== END 2024-07-16 07:16 | disposition home or self-care (01) ==
LOC: ANHLAB 07:17
PROVIDERS: PCP Internal Medicine; Visit Provider Internal Medicine
DX: D64.9 Anemia, unspecified (principal); R53.83 Other fatigue; Z79.899 Other long term (current) drug therapy; Z13.29 Encounter for screening for other suspected endocrine disorder; I10 Essential (primary) hypertension; E55.9 Vitamin D deficiency, unspecified; E11.9 Type 2 diabetes mellitus without complications; E78.2 Mixed hyperlipidemia
CPT/HCPCS: 36415; 80053; 80061; 82306; 82607; 82728; 82746; 83036; 83540; 83550; 84439; 84443; 85025; 85055

== ENCOUNTER 2024-07-23 12:15 | Outpatient (CLI) | payer MEDICARE, SELFPAY ==
[2024-07-23 12:43] LABS: Basophils Absolute Auto 0.1 K/mm3 (0.0-0.1); Eosinophils Percent Auto 0.1 % (0-4.4); Hematocrit 32.4 % (42.0-52.0); Hemoglobin 9.9 g/dL (14.0-18.0); Immature Granulocyte Absolute 0.03 K/mm3 (0.00-0.031); Immature Granulocyte Percent A 0.4 % (0-0.5); Immature Platelet Fraction Pct 20.4 % (0.9-11.2); Lymphocytes Absolute Auto 1.78 K/mm3 (0.9-3.2); Lymphocytes Percent Auto 25.5 % (18.3-44.2); Mean Corpuscular HGB Conc 30.6 g/dl (32-36); Mean Corpuscular Hemoglobin 30.7 pg (26-34); Mean Corpuscular Volume 100.3 fl (80-100); Mean Platelet Volume 12.6 fl (7.4-10.4); Monocytes Absolute Auto 0.4 K/mm3 (0.1-0.6); Monocytes Percent Auto 5.3 % (2.6-8.5); Neutrophils Absolute Auto 4.7 K/mm3 (1.3-6.7); Neutrophils Percent Auto 67.7 % (45.5-73.1); Platelet Count Result 135 k/mm3 (150-375); Red Blood Count 3.23 M/mm3 (4.6-6.20); Red Cell Distribution Width 19.9 % (11.5-14.5)
--- OUTSIDE RECORDS SUMMARY | 2024-07-23 13:43 | XMS_ITS | Encounter Summary ---
Author Organization [facility] Address [address] [place] [address] Care Team Providers Care Flagger Name Role Phone Unavailable Primary Care Provider Unavailabl e Encounter Details Date Type Department Care Team (Late st Contact Info) Description 03/15/[address] [facility] - DermPath Lab [address] [facility] [place] [address] Sadiq Doran MD [address] [place] [address] Social History Tobacco Use Types Packs/Day [...] Comments DERMATOPATHOLOGY Routine 03/14/2023 12:0 0 AM OPERATIONAL METEOROLOGIST documented in this encounter Results * DERMATOPATHOLOGY (03/14/2023 12:00 AM OPERATIONAL METEOROLOGIST) Case Report Dermatopathology Report Case: [id number] Authorizing Provider: Sadiq Doran MD Collected: 03/14/2023 12:00 AM Ordering Location: [facility] DermPath Lab Received: 03/15/2023 09:36 AM Pathologist: Marlene Renteria MD Specimen: Skin, left lat chest 3 2:35 PM OPERATIONAL METEOROLOGIST DERMATOPATHOLOGY LABORATORY Final Diagnosis Specimen A. SKIN, left lat chest: NEVUS LIPOMATOSUS SUPERFICIALIS (D17.30) 3 2:35 PM OPERATIONAL METEOROLOGIST DERMATOPATHOLOGY LABORATORY Clinical History Nevus Lipomatous vs giant Aero Path# [id number] 3 2:35 PM OPERATIONAL METEOROLOGIST DERMATOPATHOLOGY LABORATORY Gross Description Specimen A: Received is one formalin filled container labeled with the patient's name and designated left lat chest. The specimen consists of a shave biopsy measuring [id number] mm. Jar 1. 3 2:35 PM [facility] DERMATOPATHOLOGY LABORATORY Microscopic Description Specimen A. SKIN, left lat chest: There is a gently folded epidermis surrounding a connective tissue core in which fat and collagen are intermingled. 3 2:35 PM [facility] DERMATOPATHOLOGY LABORATORY Disclaimer An external and internal positive and negative controls are appropriate for the histochemical, immunohistochemical and immunofluorescence stain(s) in this case (if any), except where stated explicitly. The performance characteristics of the stain(s) cited in this report were developed and its performance characteristic determined by the Dermatopathology Laboratory at [facility], directed by Dr. Jerome Cuadra. These tests need not be, and therefore are not, approved by the [place] Food and Drug Administration. The tests are used for clinical purposes. Billing Codes Specimen Charges Stain Charges 04048 1 3 2:35 PM [facility] DERMATOPATHOLOGY LABORATORY Embedded Images 3 2:35 PM [facility] DERMATOPATHOLOGY LABORATORY Pathology/Cytolog y TISSUE SPECIMEN FROM SKIN / Unknown 03/14/2023 03/15/2023 9:36 AM OPERATIONAL METEOROLOGIST Sadiq Doran MD LAB - PATHOLOGY/CYTO LOGY ORDERABLES DERMATOPATHOLOGY LABORATORY [facility] - Department of Dermatology [address], [address] [phone] documented in this encounter Visit Diagnoses Not on filedocumented in this encounter
--- OUTSIDE RECORDS SUMMARY | 2024-07-23 13:43 | XMS_ITS | Encounter Summary ---
Author Organization [facility] Address [address] [place] [address] Care Team Providers Care Industry Segment Specialist Name Role Phone Unavailable Primary Care Provider Unavailabl e Encounter Details Date Type Department Care Team (Late st Contact Info) Description 02/05/2023 Lab Requisition [facility] - DermPath Lab [address] [place] [address] Sadiq Doran MD [address] [place] [address] Social History Tobacco Use Types Packs/Day [...] AM CDT) Case Report Dermatopathology Report Case: [id number] Authorizing Provider: Sadiq Doran MD Collected: 02/02/2023 12:00 AM Ordering Location: [facility] Lab Received: 02/05/2023 04:40 PM Pathologist: [...] DERMATOPATHOLOGY LABORATORY Clinical History A: BCCA Path# [id number] B: AK vs SK vs SCCA Path# [id number] 1:00 PM T DERMATOPATHOLOGY LABORATORY Gross Description [...] characteristic determined by the Dermatopathology Laboratory at [facility], directed by Dr. Jerome Cuadra. These tests need not be, and therefore are not, approved by the [place] Food and Drug Administration. The tests are used for clinical purposes. Billing Codes Specimen Charges Stain Charges 88146 84381 1 1 1:00 PM CDT DERMATOPATHOLOGY LABORATORY Embedded Images 1:00 PM CDT DERMATOPATHOLOGY LABORATORY Pathology/Cytology TISSUE SPECIMEN FROM SKIN / Unknown 02/02/2023 02/05/2023 4:40 PM CDT Miscellaneous samples (specimen) TISSUE SPECIMEN FROM SKIN / Unknown 02/02/2023 02/05/2023 4:40 PM CDT Sadiq Doran MD LAB - PATHOLOGY/CYTO LOGY ORDERABLES DERMATOPATHOLOGY LABORATORY [facility] - Department of Dermatology [facility] Medicine [address] [place] [address], [address] [phone] documented in this encounter Visit Diagnoses Not on filedocumented in this encounter
--- OUTSIDE RECORDS SUMMARY | 2024-07-23 13:43 | XMS_ITS | Clinical Summary ---
Author Organization [facility] Address [address] [facility] [place] [address] Care Team Providers Care Drying Equipment Operator Name Role Phone Unavailable Primary Care Provider Unavailabl e Source Comments [facility],non-owned Affiliates and Associated Physician Practices is amultiple site organization consisting of ambulatory clinics and hospital sitesin [place], [place], [place] and [place]. This disclosure is being madepursuant to the Care Everywhere program and may not contain all information available regarding this patient. Last updated 18.[facility] Social History Tobacco Use Types Packs/Day Years [...]
== END 2024-07-23 12:16 | disposition home or self-care (01) ==
LOC: ANHLAB 12:16
PROVIDERS: PCP Internal Medicine; Visit Provider Internal Medicine
DX: D64.9 Anemia, unspecified (principal); D50.9 Iron deficiency anemia, unspecified; D59.6 Hemoglobinuria due to hemolysis from other external causes
CPT/HCPCS: 36415; 85025; 85055

== ENCOUNTER 2024-09-04 02:18 | Day surgery (SDC) | payer MEDICARE, SELFPAY ==
[2024-08-25 11:14] VITALS: BMI 37.8
--- NOTE | 2024-09-03 14:35 | P.PNAN_ITS ---
Anes - Initial Pre Proc Eval Procedure: Operation Date: 09/04/24 13:30 Proposed Procedures p Esophagogastroduodenoscopy - Manish Ortiz MD Date/Time: 09/03/24 14:35 Surgeon: Manish Ortiz MD Pre Op Diagnosis: Iron deficiency anemia, unspecified Patient Data Age: 74 Gender: M Height: 1.75 m Weight: 116 kg Allergies Allergy/AdvReac Type Severity Reaction Status Date / Time Penicillins Allergy Intermediate Rash Verified 09/04/24 12:07 Home Medications ?Medication ?Instructions ?Recorded ?Confirmed ?Type multivitamin 1 tablet PO DAILY 09/17/19 09/04/24 History omega-3 fatty acids 1,000 mg 2,000 mg PO BID 01/17/21 09/04/24 History capsule (Fish Oil Concentrate) cholecalciferol (vitamin D3) 50 50 mcg PO DAILY 07/04/21 09/04/24 History mcg (2,000 unit) capsule amlodipine 10 mg tablet See Rx Instructions .Route 03/19/24 09/04/24 Rx .COMPLEX #90 tabs lisinopril 20 See Rx Instructions .Route 03/19/24 09/04/24 Rx mg-hydrochlorothiazide 25 mg tablet .COMPLEX #90 tabs metformin 500 mg tablet 500 mg PO BID #180 tabs 03/19/24 09/04/24 Rx atorvastatin 10 mg tablet (Lipitor) See Rx Instructions .Route .COMPLEX 07/16/24 09/04/24 History ferrous sulfate 325 mg (65 mg 325 mg PO BID #60 tabs 07/23/24 09/04/24 Rx iron) tablet (Feosol) Patient hx anesthesia problems: none Family hx anesthesia problems: none Results Review: All pre-operative results and documents have been reviewed as part of the pre- operative evaluation. [facility] Past Medical History Medical History (Updated 09/03/24 @ 14:36 by Alexis Meier DO) HEATH (obstructive sleep apnea) cpap Iron deficiency anemia Microscopic hematuria Prostate cancer screening Low hemoglobin Right ear pain Swelling of right testicle Elevated red blood cell count Dietary counseling and surveillance (11/15/16) Airway obstruction Aftercare following right knee joint replacement surgery Encounter for pre-operative cardiovascular clearance Arthritis History of urinary frequency High blood pressure Umbilical hernia DJD (degenerative joint disease) Benign essential hypertension Encounter for routine adult health examination without abnormal findings BMI 39.0-39.9,adult Abnormal finding of blood chemistry Vitamin D deficiency Hearing loss Encounter for Medicare annual wellness exam Ventral hernia Colon cancer screening Encounter for special screening examination for neoplasm of prostate 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 Chronic back pain Encounter for routine adult health examination with abnormal findings BMI 38.0-38.9,adult Senile cataract of right eye COPD (chronic obstructive pulmonary disease) DM2 (diabetes mellitus, type 2) Surgical History Surgical History History of total bilateral knee replacement Presence of right artificial knee joint Status post total left knee replacement History of knee surgery History of knee replacement procedure of right knee Family History Family History Father Hypertension Cerebrovascular accident Family history of cardiovascular disease Mother Hypertension Family history of cardiovascular disease Family history of arthritis Sibling Cerebrovascular accident Social History Social History Social History: Caffeine-daily Smoking status: Former smoker Tobacco type: cigarettes Second hand tobacco smoke exposure: No Additional smoking assessment comments: SOCIAL SMOKERS-QUIT 50YRS AGO Alcohol intake: current Drinks per week: 1 Substance use: never Substance use type: does not use Lack of Transportation: No Lack of Food: Never True Current Housing: I Have Housing Concerned About Future Housing: No Difficulty Paying Gas/Electric Bills: No Difficulty Paying for Meds: No Currently Unemployed: No Education: High School Diploma/GED Difficulty w/ Childcare or Family Care: No Living arrangements: with family Occupation/Education: retired Gender identity (if verbalized by the patient): Male Spiritual care concerns: No Anes - Eval Final PreProcedure Day of Procedure 09/03/24 14:35 Patient weight: obese Heart: regular rate and rhythm Lungs: clear to auscultation Airway: Mallampati scale class II Neurological: alert and oriented Last oral intake: >/= 8 hours ASA classification: III Emergent: no Anesthetic plan: proceed Anesthesia type and monitoring: general GIVS and standard monitoring Results Review: All pre-operative results and documents have been reviewed as part of the pre- operative evaluation. Informed Consent: The patient's anesthetic plan and its attendant risks and benefits were discussed with the patient/family/POA. Questions were solicited and answers provided to the satisfaction of the patient/family/POA.
--- OUTSIDE RECORDS SUMMARY | 2024-09-04 02:21 | XMS_ITS | Clinical Summary ---
Author Organization [facility] Address [address] [facility] [place] [address] Care Team Providers Care Butter Printer Name Role Phone Unavailable Primary Care Provider Unavailabl e Source Comments [facility],non-owned Affiliates and Associated Physician Practices is amultiple site organization consisting of ambulatory clinics and hospital sitesin [place], [place], [place] and [place]. This disclosure is being madepursuant to the Care Everywhere program and may not contain all information available regarding this patient. Last updated 18.[facility] Social History Tobacco Use Types Packs/Day Years Used Date Smoking Tobacco: Never Assessed Sex and Gender Information Value Date Recorded Sex Assigned at Not on file Legal Sex Male 3:57 PM CDT Gender Identity Not on file Sexual Orientation [...] VACCINE ( - 2023-2 5 season) 2024 DEPRESSION SCREENING 05/07/2024 INFLUENZA VACCINE (Season Ended) 2025 HEPATITIS B VACCINE Aged Out No longe [...] on patient's age to complete this topic Insurance [facility]
--- OUTSIDE RECORDS SUMMARY | 2024-09-04 02:21 | XMS_ITS | Encounter Summary ---
Author Organization [facility] Address [address] [facility] [place] [address] Care Team Providers Care Chair Mechanic Name Role Phone Unavailable Primary Care Provider Unavailabl e Encounter Details Date Type Department Care Team (Late st Contact Info) Description 02/05/2023 Lab Requisition [facility] - DermPath Lab [address] [facility] [place] [phone] Sadiq Doran MD [address] [address] Social History Tobacco Use Types Packs/Day [...] AM CDT) Case Report Dermatopathology Report Case: [id number] Authorizing Provider: Sadiq Doran MD Collected: 02/02/2023 12:00 AM Ordering Location: [facility] DermPath Lab Received: 02/05/2023 04:40 PM Pathologist: Marichuy Lopez MD Specimens: A) - Skin, left mid upper back B) - Skin, right helix 1:00 PM CDT DERMATOPATHOLOGY LABORATORY Final Diagnosis Specimen A. SKIN, left mid upper back: BASAL CELL CARCINOMA, NODULAR TYPE (C44.519) Specimen B. SKIN, right helix: SQUAMOUS CELL CARCINOMA IN SITU, PRESENT AT THE BASE OF THE SPECIMEN (D04.21) (see microscopic description and comment) 1:00 PM T DERMATOPATHOLOGY LABORATORY Clinical History A: BCCA Path# [id number] B: AK vs SK vs SCCA Path# [id number] 1:00 PM T DERMATOPATHOLOGY LABORATORY Gross Description [...] carcinoma cannot be ruled out. 1:[address] [facility] DERMATOPATHOLOGY LABORATORY Disclaimer An external and internal positive and negative controls are appropriate for the histochemical, immunohistochemical and immunofluorescence stain(s) in this case (if any), except where stated explicitly. The performance characteristics of the stain(s) cited in this report were developed and its performance characteristic determined by the Dermatopathology Laboratory at [facility], directed by Dr. Jerome Cuadra. These tests need not be, and therefore are not, approved by the [place] Food and Drug Administration. The tests are used for clinical purposes. Billing Codes Specimen Charges Stain Charges 84834 10940 1 1 1:00 PM CDT DERMATOPATHOLOGY LABORATORY Embedded Images 1:00 PM CDT DERMATOPATHOLOGY LABORATORY Pathology/Cytology TISSUE SPECIMEN FROM SKIN / Unknown 02/02/2023 02/05/2023 4:40 PM CDT Miscellaneous samples (specimen) TISSUE SPECIMEN FROM SKIN / Unknown 02/02/2023 02/05/2023 4:40 PM CDT us Sadiq Doran MD LAB - PATHOLOGY/CYTOLOGY ORDER ELIJAH Final Result DERMATOPATHOLOGY LABORATORY [facility] - Department of Dermatology [facility] [address] [place] [address], [address] [phone] documented in this encounter Visit Diagnoses Not on filedocumented in this encounter
--- OUTSIDE RECORDS SUMMARY | 2024-09-04 02:21 | XMS_ITS | Encounter Summary ---
Author Organization [facility] Address [address] [facility] [place] [address] Care Team Providers Care Tree Doctor Name Role Phone Unavailable Primary Care Provider Unavailabl e Encounter Details Date Type Department Care Team (Late st Contact Info) Description 03/15/2023 Lab Requisition [facility] - DermPath Lab [address] [facility] [place] [phone] Sadiq Doran MD [address] [address] Social History Tobacco Use Types Packs/Day [...] Comments DERMATOPATHOLOGY Routine 03/14/2023 12:0 0 AM DIRECTOR OF ACCOUNTS PAYABLE documented in this encounter Results * DERMATOPATHOLOGY (03/14/2023 12:00 AM DIRECTOR OF ACCOUNTS PAYABLE) Case Report Dermatopathology Report Case: [id number] Authorizing Provider: Sadiq Doran MD Collected: 03/14/2023 12:00 AM Ordering Location: [facility] DermPath Lab Received: 03/15/2023 09:36 AM Pathologist: Marlene Renteria MD Specimen: Skin, left lat chest 3 2:35 PM DIRECTOR OF ACCOUNTS PAYABLE DERMATOPATHOLOGY LABORATORY Final Diagnosis Specimen A. SKIN, left lat chest: NEVUS LIPOMATOSUS SUPERFICIALIS (D17.30) 3 2:35 PM DIRECTOR OF ACCOUNTS PAYABLE DERMATOPATHOLOGY LABORATORY Clinical History Nevus Lipomatous vs giant Aero Path# [id number] 2:35 PM DIRECTOR OF ACCOUNTS PAYABLE DERMATOPATHOLOGY LABORATORY Gross Description Specimen A: Received is one formalin filled container labeled with the patient's name and designated left lat chest. The specimen consists of a shave biopsy measuring 31u69v17 mm. Jar 1. 2:35 PM [facility] DERMATOPATHOLOGY LABORATORY Microscopic Description Specimen A. SKIN, left lat chest: There is a gently folded epidermis surrounding a connective tissue core in which fat and collagen are intermingled. 2:35 PM DIRECTOR OF ACCOUNTS PAYABLE DERMATOPATHOLOGY LABORATORY Disclaimer An external and internal positive and negative controls are appropriate for the histochemical, immunohistochemical and immunofluorescence stain(s) in this case (if any), except where stated explicitly. The performance characteristics of the stain(s) cited in this report were developed and its performance characteristic determined by the Dermatopathology Laboratory at [facility], directed by Dr. Jerome Cuadra. These tests need not be, and therefore are not, approved by the [place] Food and Drug Administration. The tests are used for clinical purposes. Billing Codes Specimen Charges Stain Charges 78917 1 2:35 PM DIRECTOR OF ACCOUNTS PAYABLE DERMATOPATHOLOGY LABORATORY Embedded Images 2:35 PM [facility] DERMATOPATHOLOGY LABORATORY Pathology/Cytolog y TISSUE SPECIMEN FROM SKIN / Unknown 03/14/2023 03/15/2023 9:36 AM DIRECTOR OF ACCOUNTS PAYABLE us Sadiq Doran MD LAB - PATHOLOGY/CYTOLOGY ORDER ELIJAH Final Result DERMATOPATHOLOGY LABORATORY [facility] - Department of Dermatology [address] [phone] documented in this encounter Visit Diagnoses Not on filedocumented in this encounter
[2024-09-04 12:08] VITALS: BP 145/81; PULSE 108; RESP 18; TEMP 36.3; O2SAT 100; BMI 38.7
[2024-09-04] MEDS: LACTATED RINGERS 1,000 ML 150 ML IV CONT (12:16)
--- NOTE | 2024-09-04 13:13 | P.HP_ITS ---
History of Present Illness History of Present Illness Consent: Risks, benefits, and alternatives have been discussed and questions answered. Patient agrees to proceed with procedure. Chief complaint: Iron deficiency anemia, unspecified Narrative: Khadijah Mckeon is a 74 year old male with anemia but denies overt gib Review of Systems Review of Systems: All systems reviewed & are unremarkable except as noted in HPI and below PMFSH Past Medical History Medical History (Updated 09/03/24 @ 14:36 by Alexis Meier DO) HEATH (obstructive sleep apnea) cpap Iron deficiency anemia Microscopic hematuria Prostate cancer screening Low hemoglobin Right ear pain Swelling of right testicle Elevated red blood cell count Dietary counseling and surveillance (11/15/16) Airway obstruction Aftercare following right knee joint replacement surgery Encounter for pre-operative cardiovascular clearance Arthritis History of urinary frequency High blood pressure Umbilical hernia DJD (degenerative joint disease) Benign essential hypertension Encounter for routine adult health examination without abnormal findings BMI 39.0-39.9,adult Abnormal finding of blood chemistry Vitamin D deficiency Hearing loss Encounter for Medicare annual wellness exam Ventral hernia Colon cancer screening Encounter for special screening examination for neoplasm of prostate 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 Chronic back pain Encounter for routine adult health examination with abnormal findings BMI 38.0-38.9,adult Senile cataract of right eye COPD (chronic obstructive pulmonary disease) DM2 (diabetes mellitus, type 2) Surgical History Surgical History History of total bilateral knee replacement Presence of right artificial knee joint Status post total left knee replacement History of knee surgery History of knee replacement procedure of right knee Family History Family History Father Hypertension Cerebrovascular accident Family history of cardiovascular disease Mother Hypertension Family history of cardiovascular disease Family history of arthritis Sibling Cerebrovascular accident Social History Social History Social History: Caffeine-daily Smoking status: Former smoker Tobacco type: cigarettes Second hand tobacco smoke exposure: No Additional smoking assessment comments: SOCIAL SMOKERS-QUIT 50YRS AGO Alcohol intake: current Drinks per week: 1 Substance use: never Substance use type: does not use Lack of Transportation: No Lack of Food: Never True Current Housing: I Have Housing Concerned About Future Housing: No Difficulty Paying Gas/Electric Bills: No Difficulty Paying for Meds: No Currently Unemployed: No Education: High School Diploma/GED Difficulty w/ Childcare or Family Care: No Living arrangements: with family Occupation/Education: retired Gender identity (if verbalized by the patient): Male Spiritual care concerns: No Meds Home Medications and Allergies Home Medications ?Medication ?Instructions ?Recorded ?Confirmed ?Type multivitamin 1 tablet PO DAILY 09/17/19 09/04/24 History omega-3 fatty acids 1,000 mg 2,000 mg PO BID 01/17/21 09/04/24 History capsule (Fish Oil Concentrate) cholecalciferol (vitamin D3) 50 50 mcg PO DAILY 07/04/21 09/04/24 History mcg (2,000 unit) capsule amlodipine 10 mg tablet See Rx Instructions .Route 03/19/24 09/04/24 Rx .COMPLEX #90 tabs lisinopril 20 See Rx Instructions .Route 03/19/24 09/04/24 Rx mg-hydrochlorothiazide 25 mg tablet .COMPLEX #90 tabs metformin 500 mg tablet 500 mg PO BID #180 tabs 03/19/24 09/04/24 Rx atorvastatin 10 mg tablet (Lipitor) See Rx Instructions .Route .COMPLEX 07/16/24 09/04/24 History ferrous sulfate 325 mg (65 mg 325 mg PO BID #60 tabs 07/23/24 09/04/24 Rx iron) tablet (Feosol) Allergies Allergy/AdvReac Type Severity Reaction Status Date / Time Penicillins Allergy Intermediate Rash Verified 09/04/24 12:07 Vital Signs Vital Signs - 24 hr 09/04/24 12:08 Temperature 97.3 F L Pulse Rate 108 H Respiratory Rate 18 Blood Pressure 145/81 H Pulse Oximetry 100 Oxygen Delivery Room Air Exam Const: General: comfortable and no acute distress HENMT: Face/Nose/Sinus: Normal nares present Eyes: General: appearance normal, both eyes and all related structures Neck: Neck: no JVD Resp: Auscultation: clear to auscultation bilaterally Cardio: Rate: regular rate Rhythm: regular rhythm GI: Inspection: non-distended GI Palp: Yes Soft to palpation Skin: General skin exam: normal color Neuro: Speech: normal speech Extrem: General: normal to inspection Psych: Mental Status: mental status grossly normal Assessment and Plan Assessment and plan (1) Iron deficiency anemia: Qualifiers: Iron deficiency anemia type: other iron deficiency Qualified Code(s): D50.8 - Other iron deficiency anemias Code(s): D50.9 - Iron deficiency anemia, unspecified Status: Acute Assessment and Plan: egd to assess if gi blood loss
[2024-09-04 13:17] LABS: Glucose Point of Care 119 mg/dl (65-105)
[2024-09-04 13:32] VITALS: BP 123/63; PULSE 97; RESP 25; O2SAT 96
[2024-09-04 13:42] VITALS: BP 117/61; PULSE 97; RESP 24; O2SAT 97
[2024-09-04 13:52] VITALS: BP 128/74; PULSE 94; RESP 20; O2SAT 94
== END 2024-09-04 14:13 | disposition home or self-care (01) ==
PROVIDERS: PCP Internal Medicine; Referring Provider Nurse Practitioner Family; Visit Provider Internal Medicine Gastroenterology
PROC: 0DJ08ZZ Inspection of Upper Intestinal Tract, Via Natural or Artificial Opening Endoscopic (ICD-10-PCS; CPT 43239; principal; 2024-09-04 13:30)
DX: K31.7 Polyp of stomach and duodenum (principal); K29.50 Unspecified chronic gastritis without bleeding; D50.9 Iron deficiency anemia, unspecified; I10 Essential (primary) hypertension; E55.9 Vitamin D deficiency, unspecified; E11.9 Type 2 diabetes mellitus without complications; J44.9 Chronic obstructive pulmonary disease, unspecified; G47.33 Obstructive sleep apnea (adult) (pediatric); R31.29 Other microscopic hematuria; J98.8 Other specified respiratory disorders; R35.0 Frequency of micturition; M19.90 Unspecified osteoarthritis, unspecified site; G89.29 Other chronic pain; M54.9 Dorsalgia, unspecified; E66.9 Obesity, unspecified; Z68.38 Body mass index [BMI] 38.0-38.9, adult; Z79.84 Long term (current) use of oral hypoglycemic drugs; Z79.899 Other long term (current) drug therapy; Z99.89 Dependence on other enabling machines and devices; Z98.890 Other specified postprocedural states; Z87.891 Personal history of nicotine dependence; Z82.49 Family history of ischemic heart disease and other diseases of the circulatory system
CPT/HCPCS: 43239; 43251; 82948; 88305; 88342; J1596; J2003; J2704; J7120

== ENCOUNTER 2024-11-26 07:11 | Outpatient (CLI) | payer MEDICARE, SELFPAY ==
--- OUTSIDE RECORDS SUMMARY | 2024-11-26 07:20 | XMS_ITS | Encounter Summary ---
Author Organization [facility] Address [address] [place] [address] Care Team Providers Care Equipment Operator/Laborer Name Role Phone Unavailable Primary Care Provider Unavailabl e Encounter Details Date Type Department Care Team (Late st Contact Info) Description 02/05/2023 Lab Requisition [facility] - DermPath Lab [address] [place] [phone] Sadiq Doran MD [address] [place] [place] [address] Social History Tobacco Use Types [...] AM CDT) Case Report Dermatopathology Report Case: [id number] Authorizing Provider: Sadiq Doran MD Collected: 02/02/2023 12:00 AM Ordering Location: [facility] DermPath Lab Received: 02/05/2023 04:40 PM [...] and comment) 1:00 PM CDT DERMATOPATHOLOGY LABORATORY at 1300 CDT 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 Jar 0. 1:00 PM CDT DERMATOPATHOLOGY LABORATORY Microscopic Description Specimen A. SKIN, [...] carcinoma cannot be ruled out. 1:00 PM CDT DERMATOPATHOLOGY LABORATORY Disclaimer An external and internal positive and negative controls are appropriate for the histochemical, immunohistochemical and immunofluorescence stain(s) in this case (if any), except where stated explicitly. The performance characteristics of the stain(s) cited in this report were developed and its performance characteristic determined by the Dermatopathology Laboratory at [facility], directed by Dr. Jerome Cuadra. These tests need not be, and therefore are not, approved by the [place] Food and Drug Administration. The tests are used for clinical purposes. Billing Codes Specimen Charges Stain Charges 53296 63171 1 1 1:00 PM CDT DERMATOPATHOLOGY LABORATORY Embedded Images 1:00 PM CDT DERMATOPATHOLOGY LABORATORY Pathology/Cytology TISSUE SPECIMEN FROM SKIN / Unknown 02/02/2023 02/05/2023 4:40 PM CDT Miscellaneous samples (specimen) TISSUE SPECIMEN FROM SKIN / Unknown 02/02/2023 02/05/2023 4:40 PM CDT us Sadiq Doran MD LAB - PATHOLOGY/CYTOLOGY ORDER ELIJAH Final Result DERMATOPATHOLOGY LABORATORY [facility] - Department of Dermatology [facility] Medicine [address] [place] [address], [address] [phone] documented in this encounter Visit Diagnoses Not on filedocumented in this encounter
--- OUTSIDE RECORDS SUMMARY | 2024-11-26 07:20 | XMS_ITS | Encounter Summary ---
Author Organization [facility] Address [address] [facility] [place] [address] Care Team Providers Care Bakery Worker Name Role Phone Unavailable Primary Care Provider Unavailabl e Encounter Details Date Type Department Care Team (Late st Contact Info) Description 03/15/2023 Lab Requisition [facility] - DermPath Lab [address] [place] [phone] Sadiq Doran MD [address] [place] [address] Social History Tobacco Use Types [...] Comments DERMATOPATHOLOGY Routine 03/14/2023 12:0 0 AM CAR DELIVERER documented in this encounter Results * DERMATOPATHOLOGY (03/14/2023 12:00 AM CAR DELIVERER) Case Report Dermatopathology Report Case: [id number] Authorizing Provider: Sadiq Doran MD Collected: 03/14/2023 12:00 AM Ordering Location: [facility] DermPath Lab Received: 03/15/2023 09:36 AM Pathologist: Marlene Renteria MD Specimen: Skin, left lat chest 3 2:35 PM CAR DELIVERER DERMATOPATHOLOGY LABORATORY Final Diagnosis Specimen A. SKIN, left lat chest: NEVUS LIPOMATOSUS SUPERFICIALIS (D17.30) 3 2:35 PM CAR DELIVERER DERMATOPATHOLOGY LABORATORY at 1435 CAR DELIVERER Clinical History Nevus Lipomatous vs giant Aero Path# [id number] 2:35 PM [facility] DERMATOPATHOLOGY LABORATORY Gross Description Specimen A: Received is one formalin filled container labeled with the patient's name and designated left lat chest. The specimen consists of a shave biopsy measuring 16m43k95 mm. Jar 1. 2:35 PM [facility] DERMATOPATHOLOGY LABORATORY Microscopic Description Specimen A. SKIN, left lat chest: There is a gently folded epidermis surrounding a connective tissue core in which fat and collagen are intermingled. 2:35 PM [facility] DERMATOPATHOLOGY LABORATORY Disclaimer An external and internal positive and negative controls are appropriate for the histochemical, immunohistochemical and immunofluorescence stain(s) in this case (if any), except where stated explicitly. The performance characteristics of the stain(s) cited in this report were developed and its performance characteristic determined by the Dermatopathology Laboratory at [facility], directed by Dr. Jerome Cuadra. These tests need not be, and therefore are not, approved by the [place] Food and Drug Administration. The tests are used for clinical purposes. Billing Codes Specimen Charges Stain Charges 77776 1 2:35 PM CAR DELIVERER DERMATOPATHOLOGY LABORATORY Embedded Images 2:35 PM [facility] DERMATOPATHOLOGY LABORATORY Pathology/Cytolog y TISSUE SPECIMEN FROM SKIN / Unknown 03/14/2023 03/15/2023 9:36 AM CAR DELIVERER Sadiq Doran MD LAB - PATHOLOGY/CYTOLOGY ORDER ELIJAH Final Result DERMATOPATHOLOGY LABORATORY [facility] - Department of Dermatology [address], [address] [phone] documented in this encounter Visit Diagnoses Not on filedocumented in this encounter
--- OUTSIDE RECORDS SUMMARY | 2024-11-26 07:20 | XMS_ITS | Clinical Summary ---
Author Organization [facility] Address [address] [place] [address] Care Team Providers Care Process Engineering Intern Name Role Phone Unavailable Primary Care Provider Unavailabl e Source Comments [facility],non-owned Affiliates and Associated Physician Practices is amultiple site organization consisting of ambulatory clinics and hospital sitesin [place], [place], [place] and [place]. This disclosure is being madepursuant to the Care Everywhere program and may not contain all information available regarding this patient. Last updated 18.[facility] Social History Tobacco Use Types Packs/Day Years [...] - 1-dose 75+ series) 01/12/2023 COVID-19 VACCINE (1 - 2023-2 5 season) 2024 DEPRESSION SCREENING 05/07/2024 INFLUENZA VACCINE (#1) 2025 HEPATITIS B VACCINE Aged Out No [...] patient's age to complete this topic Insurance [facility] MEDICARE ADV SELF PAY NO INSURANCE Member Subscriber Plan / Payer (Ef fective for All Dates) Name:Khadijah Mckeon Member ID:Not on file Relation to Subscriber:Not on file Name:KHADIJAH MCKEON Subscriber ID:Not on file (Home) Address: [address] [address] Payer ID:Not on file Group ID:Not on file Type:Self Pay Address: [facility]
[2024-11-26 08:10] LABS: Hematocrit 35.9 % (42.0-52.0); Hemoglobin 11.0 g/dL (14.0-18.0); Immature Granulocyte Percent A 0.4 % (0-0.5); Immature Platelet Fraction Pct 22.9 % (0.9-11.2); Lymphocytes Absolute Auto 2.11 K/mm3 (0.9-3.2); Mean Corpuscular HGB Conc 30.6 g/dl (32-36); Mean Corpuscular Hemoglobin 32.8 pg (26-34); Mean Corpuscular Volume 107.2 fl (80-100); Nucleated Red Blood Cells Absolute Auto 0.000 K/mm3 (0.0-0.012); Nucleated Red Blood Cells Perc 0.0 % (0.0-0.2); Platelet Count Result 131 k/mm3 (150-375); Red Blood Count 3.35 M/mm3 (4.6-6.20); White Blood Count 5.4 K/mm3 (4.5-10.0)
[2024-11-26 08:16] LABS: Iron 95 ug/dL (49-181)
[2024-11-26 08:18] LABS: Alanine Aminotransferase 16 U/L (6-50); Albumin Level 3.9 g/dL (3.5-5.1); Alkaline Phosphatase 63 U/L (38-126); Anion Gap 8 mmol/L (4-12); Aspartate Amino Transferase 20 U/L (17-59); Bilirubin,Total 0.8 mg/dL (0.2-1.3); Blood Urea Nitrogen 15 mg/dL (9-20); Calcium 9.5 mg/dL (8.4-10.2); Carbon Dioxide 26 mmol/L (22-30); Chloride 102 mmol/L (98-107); Cholesterol 102 mg/dL (0-200); Estimated Glomerular Filt Rate > 60; Glucose 108 mg/dL (65-110); HDL Direct 25 mg/dL; Potassium 4.3 mmol/L (3.4-5.0); Sodium 136 mmol/L (137-145); Total Protein 6.2 g/dL (6.3-8.2); Triglycerides 73 mg/dL (<150)
[2024-11-26 08:26] LABS: Percent Iron Saturation 26 % (20-50)
[2024-11-26 08:30] LABS: Hypochromasia 1+; Macrocytosis 1+ (NORMAL); Schistocytes None Seen
[2024-11-26 08:41] LABS: Free T4 Free Thyroxine 1.10 ng/dL (0.78-2.19)
[2024-11-26 08:49] LABS: Hemoglobin A1C 6.0 % (<5.7)
[2024-11-26 08:52] LABS: Ferritin 17.30 ng/mL (11.1-264)
[2024-11-26 08:54] LABS: Thyroid Stimulating Hormone 1.970 uIU/mL (0.465-4.680)
== END 2024-11-26 07:12 | disposition home or self-care (01) ==
PROVIDERS: PCP Internal Medicine; Visit Provider Internal Medicine
DX: D50.9 Iron deficiency anemia, unspecified (principal); Z79.899 Other long term (current) drug therapy; Z13.29 Encounter for screening for other suspected endocrine disorder; E78.2 Mixed hyperlipidemia; E11.9 Type 2 diabetes mellitus without complications; I10 Essential (primary) hypertension
CPT/HCPCS: 36415; 80053; 80061; 82728; 83036; 83540; 83550; 84439; 84443; 85025; 85055

== ENCOUNTER 2025-04-07 09:14 | Outpatient (CLI) | payer MEDICARE, SELFPAY ==
--- OUTSIDE RECORDS SUMMARY | 2025-04-07 09:48 | XMS_ITS | Clinical Summary ---
Author Organization [facility] Address [address] [place] [address] Care Team Providers Care Senior Label Specialist Name Role Phone Patrick Ken MD Primary Care Provider + Social History Tobacco Use Types Packs/Day Years Used Date Smoking Tobacco: Never Assessed Sex and Gender Information Value Date Recorded Sex Assigned at Not on file Legal Sex Male 12:29 PM CDT Gender Identity Not on file Sexual Orientation Not on file Plan of Treatment Upcoming Encounters Date Type Department Care Team (Late st Contact Info) Description 07/14/2025 10:30 AM CDT Office Visit [facility] Oncology and Hematology - [place] [address] [facility] [address] [place] [address] Quinton Mcclure MD [address] [place] [address] Health Maintenance Due Date Last Done Comments DTAP/TDAP/TD VACCINES (1 - Tdap) 01/12/1967 PNEUMOCOCCAL VACCINE 50+ YEARS (1 of 1 - PCV) 01/12/19 98 ZOSTER VACCINE (1 of 2) 01/12/1998 RSV VACCINE (60+ or ) (1 - 1-dose 75+ series) 01/12/2023 INFLUENZA VACCINE (#1) 2024 Insurance [facility] [id number] Care Teams Senior Label Specialist Relationship Specialty Start Date End Date Patrick Ken MD [address] [place] [phone] PCP - General Internal Medicine 03/11/25
--- OUTSIDE RECORDS SUMMARY | 2025-04-07 09:48 | XMS_ITS | Encounter Summary ---
Author Organization [facility] Address [address] [place] [address] Care Team Providers Care Stile Ripsaw Operator Name Role Phone Unavailable Primary Care Provider Unavailabl e Encounter Details Date Type Department Care Team (Late st Contact Info) Description 02/05/2023 Lab Requisition [facility] - DermPath Lab [address] [facility] [place] [phone] Sadiq Doran MD [address] [place] [address] Social History Tobacco Use Types [...] AM CDT) Case Report Dermatopathology Report Case: [id number] Authorizing Provider: Sadiq Doran MD Collected: 02/02/2023 12:00 AM Ordering Location: [facility] DermPath Lab Received: 02/05/2023 04:40 PM Pathologist: [...] and comment) 1:00 PM T DERMATOPATHOLOGY LABORATORY at 1300 CDT Clinical History A: BCCA Path# [id number] B: AK vs SK vs SCCA Path# [id number] 1:00 PM CDT DERMATOPATHOLOGY LABORATORY Gross Description [...] characteristic determined by the Dermatopathology Laboratory at [facility], directed by Dr. Jerome Cuadra. These tests need not be, and therefore are not, approved by the [place] Food and Drug Administration. The tests are used for clinical purposes. Billing Codes Specimen Charges Stain Charges 95320 91813 1 1 1:00 PM CDT DERMATOPATHOLOGY LABORATORY Embedded Images 1:00 PM CDT DERMATOPATHOLOGY LABORATORY Pathology/Cytology TISSUE SPECIMEN FROM SKIN / Unknown 02/02/2023 02/05/2023 4:40 PM CDT Miscellaneous samples (specimen) TISSUE SPECIMEN FROM SKIN / Unknown 02/02/2023 02/05/2023 4:40 PM CDT us Sadiq Doran MD LAB - PATHOLOGY/CYTOLOGY ORDER ELIJAH Final Result DERMATOPATHOLOGY LABORATORY [facility] - Department of Dermatology [facility] [address] [place] [address], [address] [phone] documented in this encounter Visit Diagnoses Not on filedocumented in this encounter
--- OUTSIDE RECORDS SUMMARY | 2025-04-07 09:48 | XMS_ITS | Encounter Summary ---
Author Organization [facility] Address [address] [place] [address] Care Team Providers Care Waterworks Operator Name Role Phone Unavailable Primary Care Provider Unavailabl e Encounter Details Date Type Department Care Team (Late st Contact Info) Description 03/15/2023 Lab Requisition [facility] - DermPath Lab [address] [place], [place] [phone] Sadiq Doran MD [address] [place] [address] Social History Tobacco Use Types [...] Comments DERMATOPATHOLOGY Routine 03/14/2023 12:0 0 AM GEOLOGY ASSOCIATE documented in this encounter Results * DERMATOPATHOLOGY (03/14/2023 12:00 AM GEOLOGY ASSOCIATE) Case Report Dermatopathology Report Case: [id number] Authorizing Provider: Sadiq Doran MD Collected: 03/14/2023 12:00 AM Ordering Location: [facility] DermPath Lab Received: 03/15/2023 09:36 AM Pathologist: Marlene Renteria MD Specimen: Skin, left lat chest 3 2:35 PM GEOLOGY ASSOCIATE DERMATOPATHOLOGY LABORATORY Final Diagnosis Specimen A. SKIN, left lat chest: NEVUS LIPOMATOSUS SUPERFICIALIS (D17.30) 3 2:35 PM GEOLOGY ASSOCIATE DERMATOPATHOLOGY LABORATORY at 1435 GEOLOGY ASSOCIATE Clinical History Nevus Lipomatous vs giant Aero Path# [id number] 3 2:35 PM GEOLOGY ASSOCIATE DERMATOPATHOLOGY LABORATORY Gross Description Specimen A: Received is one formalin filled container labeled with the patient's name and designated left lat chest. The specimen consists of a shave biopsy measuring 57b74q72 mm. Jar 1. 3 2:35 PM GEOLOGY ASSOCIATE DERMATOPATHOLOGY LABORATORY Microscopic Description Specimen A. SKIN, left lat chest: There is a gently folded epidermis surrounding a connective tissue core in which fat and collagen are intermingled. 3 2:35 PM GEOLOGY ASSOCIATE DERMATOPATHOLOGY LABORATORY Disclaimer An external and internal positive and negative controls are appropriate for the histochemical, immunohistochemical and immunofluorescence stain(s) in this case (if any), except where stated explicitly. The performance characteristics of the stain(s) cited in this report were developed and its performance characteristic determined by the Dermatopathology Laboratory at [facility], directed by Dr. Jerome Cuadra. These tests need not be, and therefore are not, approved by the [place] Food and Drug Administration. The tests are used for clinical purposes. Billing Codes Specimen Charges Stain Charges [id number] 1 3 2:35 PM GEOLOGY ASSOCIATE DERMATOPATHOLOGY LABORATORY Embedded Images 3 2:35 PM [facility] DERMATOPATHOLOGY LABORATORY Pathology/Cytolog y TISSUE SPECIMEN FROM SKIN / Unknown 03/14/2023 03/15/2023 9:36 AM GEOLOGY ASSOCIATE us Sadiq Doran MD LAB - PATHOLOGY/CYTOLOGY ORDER ELIJAH Final Result DERMATOPATHOLOGY LABORATORY [facility] - Department of Dermatology [address] [place] [address], [facility] [phone] documented in this encounter Visit Diagnoses Not on filedocumented in this encounter
--- OUTSIDE RECORDS SUMMARY | 2025-04-07 09:48 | XMS_ITS | Clinical Summary ---
Author Organization [facility] Address [address] [place] [address] Care Team Providers Care Cad Administrator Name Role Phone Unavailable Primary Care Provider Unavailabl e Source Comments [facility],non-owned Affiliates and Associated Physician Practices is amultiple site organization consisting of ambulatory clinics and hospital sitesin [place], [place], [place] and [place]. This disclosure is being madepursuant to the Care Everywhere program and may not contain all information available regarding this patient. Last updated 18.[facility] Social History Tobacco Use Types Packs/Day Years [...] yrs (1 - 1-dose 75+ series) 01/12/2023 DEPRESSION SCREENING 05/07/2024 MEDICARE AWV CALENDAR YEAR 2024 COVID-19 VACCINE (1 - 2024-2 6 season) 2025 INFLUENZA VACCINE (#1) 2025 HEPATITIS B VACCINE [...] patient's age to complete this topic Insurance [facility] [place] [address]
[2025-04-07 09:56] LABS: Hematocrit 36.9 % (42.0-52.0); Hemoglobin 11.5 g/dL (14.0-18.0); Immature Granulocyte Percent A 0.8 % (0-0.5); Immature Platelet Fraction Pct 21.3 % (0.9-11.2); Lymphocytes Absolute Auto 1.82 K/mm3 (0.9-3.2); Mean Corpuscular HGB Conc 31.2 g/dl (32-36); Mean Corpuscular Hemoglobin 33.5 pg (26-34); Mean Corpuscular Volume 107.6 fl (80-100); Nucleated Red Blood Cells Absolute Auto 0.000 K/mm3 (0.0-0.012); Nucleated Red Blood Cells Perc 0.0 % (0.0-0.2); Platelet Count Result 131 k/mm3 (150-375); Red Blood Count 3.43 M/mm3 (4.6-6.20); White Blood Count 6.4 K/mm3 (4.5-10.0)
[2025-04-07 10:02] LABS: Hemoglobin A1C 6.1 % (<5.7)
[2025-04-07 10:10] LABS: Alanine Aminotransferase 23 U/L (6-50); Albumin Level 4.3 g/dL (3.5-5.1); Alkaline Phosphatase 64 U/L (38-126); Anion Gap 4 mmol/L (4-12); Aspartate Amino Transferase 28 U/L (17-59); Bilirubin,Total 1.1 mg/dL (0.2-1.3); Blood Urea Nitrogen 19 mg/dL (9-20); Calcium 9.5 mg/dL (8.4-10.2); Carbon Dioxide 28 mmol/L (22-30); Chloride 106 mmol/L (98-107); Cholesterol 101 mg/dL (0-200); Estimated Glomerular Filt Rate > 60; Glucose 136 mg/dL (65-110); HDL Direct 33 mg/dL; Iron 168 ug/dL (49-181); Potassium 4.4 mmol/L (3.4-5.0); Sodium 138 mmol/L (137-145); Total Protein 6.9 g/dL (6.3-8.2); Triglycerides 61 mg/dL (<150)
[2025-04-07 10:21] LABS: Percent Iron Saturation 50 % (20-50)
[2025-04-07 10:34] LABS: Free T4 Free Thyroxine 1.13 ng/dL (0.78-2.19)
[2025-04-07 10:46] LABS: Prostate Specific Antigen 1.4 ng/mL (< OR = 4.0); Thyroid Stimulating Hormone 1.990 uIU/mL (0.465-4.680)
[2025-04-07 10:52] LABS: Ferritin 47.10 ng/mL (11.1-264)
[2025-04-07 13:18] LABS: Hypochromasia 1+
[2025-04-07 13:19] LABS: Anisocytosis Occasional; Burr Cells Occasional; Macrocytosis 1+ (NORMAL); Schistocytes Occasional
== END 2025-04-07 09:15 | disposition home or self-care (01) ==
LOC: ANHLAB 09:16
PROVIDERS: PCP Internal Medicine; Visit Provider Internal Medicine
DX: E78.2 Mixed hyperlipidemia (principal); Z79.899 Other long term (current) drug therapy; Z13.29 Encounter for screening for other suspected endocrine disorder; E11.9 Type 2 diabetes mellitus without complications; D50.8 Other iron deficiency anemias; Z12.5 Encounter for screening for malignant neoplasm of prostate; I10 Essential (primary) hypertension
CPT/HCPCS: 36415; 80053; 80061; 82728; 83036; 83540; 83550; 84153; 84439; 84443; 85025; 85055